=== PATIENT | female | born 1960 | race Caucasian/White ===

== ENCOUNTER → 2022-06-15 14:06 | Outpatient (CLI) | payer BC, SELFPAY ==
--- NOTE | ~2022-06-15 | XR_ITS ---
EXAMINATION: XR shoulder RT min 2V DATE: 06/15/2022 14:22 INDICATION: Right shoulder pain TECHNIQUE: AP internally and externally rotated, AP oblique externally rotated and axillary views of the right shoulder were obtained. COMPARISON: None FINDINGS: Normal alignment. No fracture.Moderate right glenohumeral and mild acromioclavicular osteoarthritis. Visualized portions of the mid to upper right lung are clear. Soft tissues are unremarkable. IMPRESSION: Moderate right acromioclavicular and mild glenohumeral osteoarthritis. Reviewed, dictated and finalized at location L.
== END ==
PROVIDERS: PCP Family Medicine Adolescent Medicine; Visit Provider Family Medicine Adolescent Medicine
DX: M19.011 Primary osteoarthritis, right shoulder (principal); M25.511 Pain in right shoulder
CPT/HCPCS: 73030

== ENCOUNTER 2023-04-15 18:23 | Inpatient (IN) | payer MEDICARE, BC, SELFPAY ==
[2023-04-15] VITALS (9 sets, daily range): BP systolic 134–152; BP diastolic 82–98; PULSE 126–142; RESP 15–18; TEMP 36.4; O2SAT 97–100; BMI 26.2
--- NOTE | ~2023-04-15 | XR_ITS ---
EXAMINATION: XR surgery orthopedic DATE: 04/17/2023 09:07 INDICATION: Intertrochanteric fracture of proximal left femur. TECHNIQUE: 4 intraoperative spot fluoroscopic views of left femur were obtained. I was not present. F luoroscopy exposure time was 50 seconds. COMPARISON: Left hip radiographs 04/15/2023 FINDINGS: There is an intertrochanteric fracture of proximal femur in near-anatomic alignment status post open reduction internal fixation with antegrade intramedullary shan, distal interlocking screw, a nd femoral head/neck screw. There is mild left hip osteoarthritis. IMPRESSION: 1. Intertrochanteric fracture of proximal left femur status post open reduction internal fixation. 2. Mild left hip osteoarthritis. Reviewed, dictated and finalized at location A. PRESIDENT OF MARKETING
--- NOTE | ~2023-04-15 | XR_ITS ---
EXAMINATION: XR chest 1V portable INDICATION: Pain after fall TECHNIQUE: Portable AP chest at 2031 hours COMPARISON: None available FINDINGS: There is mild atelectasis of the left lung base. No pleural effusion or pneumothorax. The c ardiomediastinal silhouette is normal. IMPRESSION: 1. Mild atelectasis of the left lung base. Reviewed, dictated and finalized at location F. LING MACHINE OPERATOR
--- NOTE | ~2023-04-15 | XR_ITS ---
EXAMINATION: XR hip LT 2V w AP pelvis INDICATION: Left hip pain, initial encounter TECHNIQUE: AP view the pelvis and two views of the left hip are obtained. COMPARISON: None available FINDINGS: There is an acute, traumatic, closed, intertrochanteric fracture of the proximal left femur . The femoral head is well-seated in the acetabulum. There is mild osteoarthritis of the hips. IMPRESSION: 1. Acute intertrochanteric fracture of the proximal left femur. Reviewed, dictated and finalized at location F. L FINISHER
--- NOTE | 2023-04-15 18:48 | ED.FALL ---
HPI - Fall General Chief Complaint: Fall Stated Complaint: fall, hip pain Time Seen by Provider: 04/15/23 18:32 History of Present Illness HPI Narrative: patient is a 62-year-old female who presents ER with left hip pain. She was walking out of her home when she tripped falling onto her left hip. She did not strike her head or lose consciousness. Sudden onset pain. No numbness or tingling to the affected extremity. Unable to bear weight since the fall. Pain is sharp nonradiating. It is better with lying still. Related Data Allergies Allergy/AdvReac Type Severity Reaction Status Date / Time No Known Allergies Allergy Verified 04/06/23 13:14 Review of Systems Review of Systems: All systems reviewed & are unremarkable except as noted in HPI and below Constitutional: Constitutional: Reports no additional constitutional complaints Cardiovascular: Cardiovascular: Reports no additional cardiovascular complaints Respiratory: Respiratory: Reports no additional respiratory complaints Musculoskeletal: Musculoskeletal: Reports arthralgias, Denies joint swelling and Denies muscle cramps Integumentary/Breasts: Skin/Breast: Reports system reviewed and no additional complaints, except as docu Neurologic: Reports system reviewed and no additional complaints, except as documented [facility] Past Medical History Medical History (Updated 04/15/23 @ 22:22 by Jan Montoya MD) Hypertension Surgical History Surgical History (Updated 06/01/21 @ 16:53 by Carlyn Garcia, PAShakaC) History of History of tonsillectomy and adenoidectomy Family History Family History (Updated 06/02/21 @ 14:14 by Bhavna Ghotra MA) Father Acute myocardial infarction Hypertension Malignant neoplasm of prostate Grandparent Cerebrovascular accident Social History Social History (Updated 06/02/21 @ 14:16 by Bhavna Ghotra MA) Smoking status: Never smoker Second hand tobacco smoke exposure: No Alcohol intake: current Drinks per week: 6 Substance use: never Substance use type: does not use Living arrangements: with family Occupation/Education: retired Gender identity (if verbalized by the patient): Female Sexual Orientation (if Verbalized by the Patient): Straight or Heterosexual Spiritual care concerns: No Agree to blood products: Yes Exam Narrative: GENERAL: Well-appearing, well-nourished, and in no acute distress. HEAD: Normocephalic, atraumatic. ENT: Mucous membranes moist. NECK: Supple. CHEST: Clear to auscultation. No respiratory distress. HEART: Tachycardic and regular. Normal peripheral pulses. ABDOMEN: Soft, nontender, nondistended. EXTREMITIES: Neurovascularly intact left lower extremity but limited range motion due to pain at the hip. SKIN: Warm, dry, no rash. NEURO: Alert and oriented x3. PSYCH: Normal mood and affect. Course Course Emergency Course: Discussed case with Dr. Beckford. Recommends NPO at midnight. Patient persistently tachycardic in EKG looks like atrial flutter with RVR. She has received metoprolol 5 mg x 2. Cardiology has been consulted. Will order an echo in the morning. Vital Signs Vital signs: Vital Signs Temperature 97.5 F L 04/15/23 18:25 Pulse Rate 126 H 04/15/23 18:25 Respiratory Rate 18 04/15/23 18:25 Blood Pressure 152/87 H 04/15/23 18:25 Pulse Oximetry 100 04/15/23 18:25 Oxygen Delivery Room Air 04/15/23 18:25 Temperature 97.5 F L 04/15/23 18:25 Pulse Rate 126 H 04/15/23 21:46 Respiratory Rate 18 04/15/23 21:46 Blood Pressure 136/96 H 04/15/23 21:46 Pulse Oximetry 98 04/15/23 21:46 Oxygen Delivery Room Air 04/15/23 18:25 MDM - Fall Lab Data 04/15/23 19:47 04/15/23 20:26 Labs: Lab Results 04/15/23 04/15/23 Range/Units 19:47 20:26 WBC 11.4 H (4.5-10.0) K/mm3 RBC 3.92 L (4.2-5.4) M/mm3 Hgb 13.1 (12.0-15.0) g/dL Hct 38.5 (37.0-47.0)
[2023-04-15] MEDS: MORPHINE SULFATE (*CRX) 2 MG/ML INJ IV PUSH ×2 (18:50→21:45)
--- NOTE | 2023-04-15 19:33 | ECG_ITS ---
Measurements Intervals [place] Rate: 126 P: OR: 0 QRS: -9 QRSD: 184 T: -71 QT: 335 QTc: 486 Interpretive Statements ATRIAL FLUTTER/TACHYCARDIA WITH RAPID VENTRICULAR RESPONSE DELAYED PRECORDIAL R/S TRANSITION ABNORMAL ECG NO PREVIOUS ECG AVAILABLE FOR COMPARISON Electronically Signed On 04-15-2023 20:25:20 SMALL PRODUCTS ASSEMBLER by Junior Mauro D.O.
[2023-04-15 20:01] LABS: Basophils Absolute Auto 0.1 K/mm3 (0.0-0.1); Basophils Percent Auto 0.4 % (0.2-1.2); Eosinophils Absolute Auto 0.1 K/mm3 (0-0.3); Hematocrit 38.5 % (37.0-47.0); Hemoglobin 13.1 g/dL (12.0-15.0); Immature Granulocyte Absolute 0.04 K/mm3 (0.00-0.031); Immature Granulocyte Percent A 0.3 % (0-0.5); Lymphocytes Absolute Auto 1.05 K/mm3 (0.9-3.2); Lymphocytes Percent Auto 9.2 % (18.3-44.2); Mean Corpuscular Hemoglobin 33.4 pg (26-34); Mean Corpuscular Volume 98.2 fl (80-100); Mean Platelet Volume 9.2 fl (7.4-10.4); Monocytes Absolute Auto 0.6 K/mm3 (0.1-0.6); Monocytes Percent Auto 5.3 % (2.6-8.5); Neutrophils Absolute Auto 9.6 K/mm3 (1.3-6.7); Neutrophils Percent Auto 83.8 % (45.5-73.1); Platelet Count Result 382 k/mm3 (150-375); Red Blood Count 3.92 M/mm3 (4.2-5.4); Red Cell Distribution Width 12.3 % (11.5-14.5); White Blood Count 11.4 K/mm3 (4.5-10.0)
[2023-04-15 20:04] LABS: INR 1.1; Prothrombin Time 14.2 Seconds (11.1-14.7)
[2023-04-15 20:47] LABS: Alanine Aminotransferase 20 U/L (6-35); Albumin Level 4.4 g/dL (3.5-5.1); Alkaline Phosphatase 106 U/L (38-126); Anion Gap 9 mmol/L (8-16); Aspartate Amino Transferase 31 U/L (14-36); Bilirubin,Total 0.4 mg/dL (0.2-1.3); Blood Urea Nitrogen 19 mg/dL (7-17); Calcium 9.3 mg/dL (8.4-10.2); Carbon Dioxide 22 mmol/L (22-30); Chloride 99 mmol/L (98-107); Estimated CRCL calculation 81 ml/min; Estimated Glomerular Filt Rate > 60; Glucose 130 mg/dL (65-110); Potassium 3.7 mmol/L (3.4-5.0); Sodium 130 mmol/L (137-145)
[2023-04-15] MEDS: METOPROLOL TARTRATE INJ 5 MG/5 ML VIAL IV PUSH ×2 (20:50→21:38)
[2023-04-15] MEDS: SODIUM CHLORIDE 0.9% IV 1,000 ML 999 ML IV CONT (21:39)
[2023-04-15 21:50] LABS: Magnesium 1.7 mg/dL (1.6-2.3)
[2023-04-15] MEDS: dilTIAZem 100 MG/100 ML 100 MG/100 ML BAG IV CONT (22:31)
--- NOTE | 2023-04-15 23:17 | ADMGEN ---
This patient, Teresita Ochoa, was admitted to IMU Room 200-01. Patient/family oriented to hospital policies and general routines including ID bracelet, bed and alarms, visiting hours, pain management, procedures, bathroom and other care routines, personal items, smoking policy, room service/diet, and visiting hours. Information on how to activate the Rapid Response Team has been discussed. Patient/Family are encouraged to report perceived risks to care and to ask questions if they do not understand what they are told or what they should do.
[2023-04-16] VITALS (24 sets, daily range): BP systolic 70–142; BP diastolic 40–82; PULSE 64–135; RESP 15–24; TEMP 36–36.8; O2SAT 93–97
[2023-04-16] MEDS: MORPHINE SULFATE (*CRX) 2 MG/ML INJ IV PUSH (00:03)
[2023-04-16] MEDS: METOPROLOL TARTRATE INJ 5 MG/5 ML VIAL IV PUSH (00:46)
--- NOTE | 2023-04-16 00:59 | PM.IMHP ---
H&P: HPI History of Present Illness Date/Time: 04/16/23 00:59 Chief Complaint: Left hip pain after tripping and falling Narrative: 62-year-old female with past medical history of essential hypertension and arthritis who presented to the ER after she had a trip and fall resulting in left hip pain. She reported that she stepped down into the garage onto the 1st step and got tripped up. She stumbled and was trying to catch herself but still fell. She landed on her left side and kept trying to straighten out her leg. She was unable to straighten out her leg in finally called for help. X-ray performed in the ER demonstrated acute intratrochanteric fracture the proximal left femur. On arrival to the ER the patient was noted to be tachycardic. The patient has had a mention of tachycardia from office visits with her primary as far back as June 2022. The patient had purchased a fitness tracker about 3 weeks ago. Ever since she put it on it is been telling her that her heart rate is high. Most notably her heart rate is been staying high when she is in bed and sleeping up to 130. She went to her primary care physician's office 04/06/2023 at which time a Holter monitor was ordered as well as some basic labs. Her Holter monitor could not be arranged until the middle of April.. She has not been having any chest pain. She denies any shortness of breath or palpitations. She has been will climb steps without difficulty. She has not noticed any lower extremity swelling orthopnea. Review of Systems Review of Systems: 12 systems were reviewed with pertinent positives and negatives per HPI. Except as documented in the HPI, all other systems were reviewed and are negative. [facility] Past Medical History Medical History Hypertension Surgical History Surgical History History of History of tonsillectomy and adenoidectomy Family History Family History Father Malignant neoplasm of prostate Acute myocardial infarction Hypertension Grandparent Cerebrovascular accident Mother Alzheimer disease Social History Social History (Updated 04/16/23 @ 05:39 by Karyna J. Hopen, DO) Social History: Patient is retired from working for the [employer]. She lives with her in the been since 1977. They raised 2 daughters. She drinks 3-4 but beers several times a week. She denies any illicit substance use pack of cigarettes per day for 38 years but quit smoking in 2012. Code status: Full code Surrogate decision maker: Smoking packs per day: 1 Smoking cigarettes per day: 20.0 Years smoked: 38 Smoking pack-years: 38.00 Smoking status: Former smoker Tobacco type: cigarettes Second hand tobacco smoke exposure: No Alcohol intake: current Drinks per week: 28 Alcohol use details: 3-4 beers a day several times a week. Substance use: never Substance use type: does not use Do You Feel Safe in your Home?: Yes Lack of Transportation: No Lack of Food: Never True Current Housing: I Have Housing Concerned About Future Housing: No Difficulty Paying Gas/Electric Bills: No Difficulty Paying for Meds: No Currently Unemployed: No Education: High School Diploma/GED Difficulty w/ Childcare or Family Care: No Living arrangements: with family Occupation/Education: retired Gender identity (if verbalized by the patient): Female Sexual Orientation (if Verbalized by the Patient): Straight or Heterosexual Spiritual care concerns: No Agree to blood products: Yes Meds Home Medications and Allergies Home Medications Medication Instructions Recorded Confirmed Type lisinopril 20 1 tablet PO DAILY #90 tabs 05/05/22 04/15/23 Rx mg-hydrochlorothiazide 25 mg tablet propranolol 80 mg capsule,24 80 m
[2023-04-16] MEDS: MORPHINE SULFATE (*CRX) 4 MG/ML INJ IV PUSH ×2 (02:48→06:26)
--- NOTE | 2023-04-16 06:00 | ECHO_ITS ---
Patient Info Name: Teresita Ochoa Age: 62 years : 1960 Gender: Female Ht: 67 in Wt: 165 lbs BSA: 1.89 m2 HR: 74 bpm BP: 103 / 56 mmHg Heart Rhythm: Sinus Rhythm Technical Quality: Good Exam Date: 04/16/2023 9:33 AM Exam Location: Echo Lab Patient Status: Inpatient Admit Date: 04/16/2023 Staff Ordering Physician: Jan Montoya MD Extruding Press Operator: Rose Al RDCS Attending Provider: Karyna Case DO Referring Physician: Jan NICHOLS; Exam Type: CA echo doppler color flow Study Info Indications - atrial flutter Complete two-dimensional, color flow and Doppler transthoracic echocardiogram is performed. Summary 1. Complete two-dimensional, color flow and Doppler transthoracic echocardiogram is performed. 2. The left ventricular diastolic function is indeterminate. 3. There is mildly increased left ventricular wall thickness. 4. Left ventricular systolic function is normal, estimated at 60-65%. 5. Left ventricular chamber dimension is normal. 6. Left atrial chamber dimension is mildly enlarged. 7. Right atrial chamber dimension is mildly enlarged. 8. There is mild tricuspid valve regurgitation. 9. Mild pulmonary hypertension, estimated pulmonary arterial systolic pressure is 44 mmHg. Left Ventricle Left ventricular chamber dimension is normal. Left ventricular systolic function is normal, estimated at 60-65%. There is mildly increased left ventricular wall thickness. The left ventricular diastolic function is indeterminate. Right Ventricle Right ventricular chamber dimension is normal. Right ventricular systolic function is normal. Left Atria Left atrial chamber dimension is mildly enlarged. Right Atria Right atrial chamber dimension is mildly enlarged. Atrial Septum Intact interatrial septum visualized by color flow imaging. Aortic Valve The aortic valve is trileaflet. There is mild aortic valve sclerosis. There is no aortic valve stenosis. There is trace aortic valve regurgitation. Pulmonic Valve The pulmonic valve is normal. There is no pulmonic valve stenosis. There is trace pulmonic regurgitation. Mitral Valve The mitral valve has normal leaflets. There is no mitral valve stenosis. There is trace mitral valve regurgitation. Tricuspid Valve The tricuspid valve leaflets are normal. There is no significant tricuspid valve stenosis. There is mild tricuspid valve regurgitation. Mild pulmonary hypertension, estimated pulmonary arterial systolic pressure is 44 mmHg. Pericardium/Pleural The pericardium appears normal. There is no pericardial effusion. Inferior Vena Cava Normal inferior vena cava with <50% collapse upon inspiration consistent with elevated right atrial pressure, 10 mmHg. Aorta The aortic root size at the sinus of Valsalva is normal. Left Ventricular Outflow Tract Name Value Normal LVOT 2D LVOT Diameter 2.0 cm LVOT Doppler LVOT Peak Gradient 2 mmHg LVOT Mean Gradient 2 mmHg LVOT VTI 19 cm LVOT VTI/AV VTI Ratio 1.0 LVOT Stroke Volume 58 ml LVOT CO
[2023-04-16] MEDS: dilTIAZem 100 MG/100 ML 100 MG/100 ML BAG 15 MG IV CONT (06:14)
[2023-04-16] MEDS: METOPROLOL TARTRATE 50 MG TAB PO ×2 (08:06→21:20)
[2023-04-16] MEDS: lisinopriL 20 MG TABLET PO (08:13)
--- NOTE | 2023-04-16 08:19 | PM.CNOR ---
Assessment and Plan Assessment and plan (1) Closed intertrochanteric fracture of left hip: Qualifiers: Encounter type: initial encounter Fracture alignment: nondisplaced Qualified Code(s): S72.145A - Nondisplaced intertrochanteric fracture of left femur, initial encounter for closed fracture Code(s): S72.142A - Displaced intertrochanteric fracture of left femur, initial encounter for closed fracture Status: Acute Assessment and Plan: New patient evaluation for chief complaint left hip fracture. History, physical exam and radiographs reviewed with the patient And her . Discussed the condition, nature, etiology and course of natural history with the patient. Treatment options including surgical and nonoperative treatment were reviewed. Risks and benefits of each as well as alternatives reviewed. The patient's questions were answered. Conservative treatment ice, pain control, mechanical DVT prophylaxis. patient like to proceed with surgery. Needs medical stabilization and cardiac clearance. Plan Discussed nonoperative and operative treatment options with the patient. Risks and benefits of each as well as alternatives were reviewed. All of the patient's questions were answered. The risks of surgery reviewed including but not limited to: Neurovascular damage, wound complication, infection, blood clot, pulmonary embolus, stroke, myocardial infarction, and anesthetic risks up to and including . Continued pain and possible dysfunction were explained. Specific risks of the procedure including later recurrence of deformity. No guarantees were offered. If hardware used, discussed risk of failure/ breakage and possible need for removal. If complications occur, the patient understands the need for further treatment, possible further surgery. Patient verbalizes understanding and wishes to proceed. PLAN: Left Hip intramedullary hip screw History of Present Illness HPI Consult date: 04/16/23 Requesting physician: Jan Montoya MD Chief complaint: Hip Fracture, Aflutter RVR Narrative: 62-year-old woman who fell at home yesterday onto left hip. Urgency room evaluation found to have left hip fracture as well as atrial flutter. Admitted for further care. Denies prior problems with the hip. Independent ambulator normally active. Denies numbness or tingling. Denies loss of consciousness or head injury. Review of Systems Constitutional: Constitutional: Denies fever(s) Eyes: Eyes: Denies blurry vision ENT: Reports Normal hearing present Cardiovascular: Cardiovascular: Denies chest pain and Denies dyspnea Respiratory: Respiratory: Denies dyspnea and Denies wheezing Gastrointestinal: Gastrointestinal: Denies abdominal pain Genitourinary: Genitourinary: Denies urinary urgency Musculoskeletal: Musculoskeletal: Reports as per HPI and Denies numbness Integumentary/Breasts: Skin/Breast: Denies changing lesions and Denies sores Neurologic: Reports Normal hearing present, Denies behavioral changes, Denies confusion, Denies numbness and Denies convulsions Psychiatric: Psychiatric: Denies behavioral changes, Denies confusion and Denies hallucinations Endocrine: Endocrine: Denies heat intolerance Hematologic/Lymphatic: Hematologic/Lymphatic: Denies easy bleeding Allergic/Immunologic: Allergic/Immunologic: Denies wheezing [facility] Past Medical History Medical History Hypertension Surgical History Surgical History History of History of tonsillectomy and adenoidectomy Family History Family History Father Malignant neoplasm of prostate Acute myocardial infarction Hypertension Grandparent Cerebrovascular accident Mother Alzheimer disease Social History Social History (Reviewed 04/16/23 @ 08:21 by Edgardo
[2023-04-16] MEDS: oxyCODONE HCL (*CRX) 5 MG TAB IR PO (10:30)
--- NOTE | 2023-04-16 10:56 | ECG_ITS ---
Measurements Intervals [place] Rate: 67 P: [place]: 0 QRS: 24 QRSD: 97 T: 42 QT: 428 QTc: 453 Interpretive Statements ATRIAL FLUTTER WITH NORMAL VENTRICULAR RESPONSE INCOMPLETE RIGHT BUNDLE BRANCH BLOCK LOW QRS VOLTAGE IN PRECORDIAL LEADS INFERIOR INFARCT, AGE INDETERMINATE ABNORMAL ECG COMPARED TO ECG 04/15/2023 20:22:39 MYOCARDIAL INFARCT FINDING NOW PRESENT HEART RATE HAS DECREASED Electronically Signed On 04-16-2023 16:55:48 RETAIL BUSINESS ANALYST by Junior Mauro D.O.
--- NOTE | 2023-04-16 10:57 | PM.CNCAR ---
Assessment and Plan Assessment and plan (1) Atrial flutter with rapid ventricular response: Code(s): I48.92 - Unspecified atrial flutter Status: Acute Assessment and Plan: She has a chads Vasc score of 2 a normal is 3 dose because of age gender and hypertension. Initially that way heart rate is controlled on current dose of diltiazem. 2D echocardiogram Doppler severe is ordered and will be reviewed. Continue current though diltiazem drip does has a heart rate is controlled. Will reorder an EKG now. His she was likely. Will give 1 dose of enoxaparin 1 milligram/kilogram subQ x1 now to underlying protector for today for DVT and thrombus risk. Plan is for her to have whenever surgery tomorrow. In the short term obviously she needs her hip fixed. In the superintendent container terminal will get pursue rate control and it or not rhythm control by cardioversion but obviously needs to proceed to have her and hip fracture stabilized before pursuing any cardioversion due to long-term anticoagulant need. She does drink at least 3-5 beers per night. Certainly this may be a contributing factor to her arrhythmia. Alcohol cessation or reduction is advised (2) Hypertension: Code(s): I10 - Essential (primary) hypertension Status: Acute Assessment and Plan: continue lisinopril/hydrochlorothiazide and diltiazem (3) Electrolyte abnormality: Code(s): E87.8 - Other disorders of electrolyte and fluid balance, not elsewhere classified Status: Acute Assessment and Plan: Will replace 40 mEq of potassium chloride p.o. x1 as well as magnesium 2 g IV x1 (4) Closed intertrochanteric fracture of left hip: Qualifiers: Encounter type: initial encounter Fracture alignment: nondisplaced Qualified Code(s): S72.145A - Nondisplaced intertrochanteric fracture of left femur, initial encounter for closed fracture Code(s): S72.142A - Displaced intertrochanteric fracture of left femur, initial encounter for closed fracture Status: Acute Assessment and Plan: The plan for surgery tomorrow. Patient is at low risk of perioperative cardiovascular complications History of Present Illness History of Present Illness Consult date/time: 04/16/23 10:57 Requesting physician: Jan Montoya MD Consult reason: atrial fibrillation Reason For Visit: Hip Fracture, Aflutter RVR Narrative: Reason for consultation: Atrial flutter Date of service 04/16/2023 Requesting provider: Dr. Montoya History patient is a 62-year-old female who came to the hospital following a fall and hip fracture. She actually has been dealing with an elevated heart rate though for the past 3-[address] Clement who recently started her on propanolol and had discontinued amlodipine. She noticed a fast heartbeat on her fit bit about a month ago. She knows that her heart rate was high even at rest. This led her to be seen by Dr. Clement who reportedly ordered an outpatient monitor and made the medication changes as above. She otherwise of feels okay and denies any palpitations, shortness of breath, syncope, presyncope, paroxysmal nocturnal dyspnea, orthopnea, edema or palpitations. Yesterday she was walking out from the kitchen to the garage where she lost her footing and fell on her left side. Came to hospital because of left hip pain and she was found to have inter trochanteric fracture of the left hip. Plan is for surgical intervention tomorrow. She was started on a diltiazem drip which has decreased her heart rate into the 60s. Review of Systems Review of Systems: All systems reviewed & are unremarkable except as noted in HPI and below Constitutional: Constitutional: Denies body ache(s) Eyes: Eyes: Denies blurry vision ENT: Reports Normal hearing present Cardiovascular: Cardiovascular: Denies chest pain Respiratory: Respiratory: Denies cough Gastrointestinal: Gastrointestinal: Denies abdominal pain Genitourin
[2023-04-16] MEDS: MAGNESIUM SULF 2 GM/WATER 50ML 2 GM/50 ML BAG IVPB (12:26)
[2023-04-16] MEDS: SODIUM CHLORIDE 0.9% IV 250 ML 100 ML IV CONT (12:27)
[2023-04-16] MEDS: POTASSIUM CHLORIDE 20 MEQ ER TABLET 40 MEQ PO (12:29)
[2023-04-16] MEDS: ENOXAPARIN 80 MG/0.8 ML SYRINGE SUB-Q (12:37)
--- NOTE | 2023-04-16 15:16 | PM.IMPN ---
Progress Note: A&P Assessment and Plan (1) Closed intertrochanteric fracture of left hip: Qualifiers: Encounter type: initial encounter Fracture alignment: nondisplaced Qualified Code(s): S72.145A - Nondisplaced intertrochanteric fracture of left femur, initial encounter for closed fracture Code(s): S72.142A - Displaced intertrochanteric fracture of left femur, initial encounter for closed fracture Status: Acute Assessment and Plan: Patient tripped and fell onto her left hip in the garage. She tripped stepping down into the garage. She did not strike her head or lose consciousness.? Xray showing acute intratrochanteric fracture of the proximal left femur. Patient was admitted. Orthopedics consulted. Plan for surgical repair in the morning. Pain management per Orthopedics (2) Atrial flutter with rapid ventricular response: Code(s): I48.92 - Unspecified atrial flutter Status: Acute Assessment and Plan: Patient found to have atrial flutter on admission. Suspect patient has had Aflutter for at least 3 weeks. [id number] =2 (gender and HTN). TSH normal 04/07/23 Echo EF 60-65%, mild pulm HTN, mild bi-atrail enlargement and indeterminate diastolic fxn. Cardiology consulted and apprecaite their input. Metoprolol then Diltiazem IV given. Heart rate improved. Changed to oral metoprolol and HR remaining stable. . Lovenox full dose x1 given. Follow Anticoagulation when okay with ortho. (3) Hypertension: Code(s): I10 - Essential (primary) hypertension Status: Acute Assessment and Plan: Patient's blood pressure was reviewed on 04/15 Blood pressure low at times. Back down on morphine and hold lisinopril Will continue to monitor (4) Hyponatremia: Code(s): E87.1 - Hypo-osmolality and hyponatremia Status: Acute Assessment and Plan: Sodium 130 on admission. Hyponatremia could be related to pain but sodium level the same as 04/07/23. TSH normal Check cortisol level and urine studies. Plan Code status - full Dvt prophylaxis - lovenox Subjective Date/time seen: 04/16/23 15:16 Interval history: 62yo female with HTN here for hip pain after a fall and found to have left hip fracture. Also has been having tachycardia and noted to have AFib/RVR in the ED. No CP or SOB. Having trouble getting comfortable. Pain 7/10 at the moment. Exam Narrative: AF 97.8 98/53 86 16 93% ra Gen - NARD Chest - clear anteriorly and in the flanks. nml RR CV - Irregular. Tele showing AFlutter with variable conduction Abd - Soft, NT/ND, Positive BS Ext - No pedal edema. 2+ DP pulses bilaterally. Neuro - Alert and appropriate. nml sensation to the left foot/toes Psych - Nml mood and affect Skin - Warm and dry Objective Data Vital Signs Vital Signs: Vital Signs - 24 hr 04/15/23 18:25 04/15/23 20:50 04/15/23 20:52 Temperature 97.5 F L Pulse Rate 126 H 132 H 141 H Respiratory Rate 18 17 Blood Pressure 152/87 H 142/98 H Pulse Oximetry 100 99 Oxygen Delivery Room Air 04/15/23 21:38 04/15/23 21:46 04/15/23 22:31 Temperature Pulse Rate 128 H 126 H 127 H Respiratory Rate 18 Blood Pressure 136/96 H 134/98 H Pulse Oximetry 98 Oxygen Delivery 04/15/23 23:00 04/15/23 23:19 04/15/23 23:33 Temperature 97.6 F Pulse Rate 142 H 134 H 127 H Respiratory Rate 15 15 Blood Pressure 136/96 H 136/94 H 142/82 H Pulse Oximetry 100 97 Oxygen Delivery 04/16/23 00:38 04/16/23 00:46 04/16/23 00:54 Temperature Pulse Rate 130 H 131 H 131 H Respiratory Rate Blood Pressure 142/82 H Pulse Oximetry Oxygen Delivery 04/16/23 00:00 04/16/23 00:00 04/16/23 02:00 Temperature Pulse Rate 129 H 130 H Respiratory Rate Blood Pressure Pulse Oximetry 97 Oxygen Delivery Room Air 04/16/23 02:40 04/16/23 02:40 04/16/23 04:00 Temperature 97.9 F Pulse Rate 131 H 131 H 76 Respiratory Rate
[2023-04-16] MEDS: ACETAMINOPHEN 325 MG TABLET 650 MG PO ×2 (15:49→21:29)
[2023-04-16 18:43] LABS: Creatinine Urine 191.8 mg/dL
[2023-04-16 18:46] LABS: Sodium Urine Random 8 meq/L
[2023-04-16] MEDS: SODIUM CHLORIDE 0.9% IV 250 ML BAG 500 ML IVPB (21:15)
[2023-04-16] MEDS: dilTIAZem 100 MG/100 ML 100 MG/100 ML BAG IV CONT (21:20)
[2023-04-17] VITALS (30 sets, daily range): BP systolic 88–113; BP diastolic 50–70; PULSE 65–139; RESP 13–21; TEMP 36.3–37.4; O2SAT 93–100
[2023-04-17] MEDS: ACETAMINOPHEN 325 MG TABLET 650 MG PO ×3 (03:04→20:00)
[2023-04-17 04:28] LABS: Hematocrit 33.9 % (37.0-47.0); Hemoglobin 11.3 g/dL (12.0-15.0); Mean Corpuscular HGB Conc 33.3 g/dl (32-36); Mean Corpuscular Hemoglobin 33.1 pg (26-34); Mean Corpuscular Volume 99.4 fl (80-100); Platelet Count Result 312 k/mm3 (150-375); Red Blood Count 3.41 M/mm3 (4.2-5.4); Red Cell Distribution Width 12.7 % (11.5-14.5); White Blood Count 10.4 K/mm3 (4.5-10.0)
[2023-04-17 04:46] LABS: Anion Gap 7 mmol/L (8-16); Blood Urea Nitrogen 8 mg/dL (7-17); Calcium 8.5 mg/dL (8.4-10.2); Carbon Dioxide 21 mmol/L (22-30); Chloride 103 mmol/L (98-107); Estimated CRCL calculation 94 ml/min; Estimated Glomerular Filt Rate > 60; Glucose 109 mg/dL (65-110); Potassium 3.9 mmol/L (3.4-5.0); Sodium 131 mmol/L (137-145)
--- NOTE | 2023-04-17 07:01 | PC.NURSE ---
I notified the OR charge nurse that the patient is back on a Cardizem drip at 15mg/hr and heart rate has decreased to 90-115, AFlutter. Also advised her that Lovenox 80mg subcut was given on day shift yesterday for AFib/Flutter. She will notify anesthesia and Dr. Beckford.
[2023-04-17] MEDS: dilTIAZem 100 MG/100 ML 100 MG/100 ML BAG 15 MG IV CONT ×3 (07:16→19:59)
--- NOTE | 2023-04-17 07:37 | WPDHPUPDATE1 ---
History and Physical Update Update Date/Time: 04/17/23 07:37 History and Physical has been reviewed, including an updated exam of the patient. There are NO changes in the patient's condition. Risks, benefits, and alternatives have been discussed and questions answered. Patient agrees to proceed with procedure.
--- NOTE | 2023-04-17 07:55 | WPDANESEPPF ---
Anes - Initial Pre Proc Eval Procedure: Operation Date: 04/17/23 07:30 Proposed Procedures p Intertrochanteric Nail(Left) - Edgardo Beckford MD Date/Time: 04/17/23 07:55 Surgeon: Karyna Case DO Pre Op Diagnosis: Hip Fracture, Aflutter RVR Patient Data Age: 62 Gender: F Height: 1.71 m Weight: 81.6 kg Last Vital Signs Temp 36.3 C L 04/17/23 05:33 Pulse 79 04/17/23 07:16 Resp 18 04/17/23 05:33 BP 101/61 04/17/23 05:33 Pulse Ox 93 04/17/23 05:33 O2 Del Method Room Air 04/17/23 04:00 Allergies Allergy/AdvReac Type Severity Reaction Status Date / Time No Known Allergies Allergy Verified 04/06/23 13:14 Home Medications Medication Instructions Recorded Confirmed Type lisinopril 20 1 tablet PO DAILY #90 tabs 05/05/22 04/15/23 Rx mg-hydrochlorothiazide 25 mg tablet propranolol 80 mg capsule,24 80 mg PO DAILY #90 caps 04/11/23 04/15/23 Rx hr,extended release Laboratory Tests 04/16/23 04/17/23 17:00 03:41 WBC 10.4 H K/mm3 (4.5-10.0) RBC 3.41 L M/mm3 (4.2-5.4) Hgb 11.3 L g/dL (12.0-15.0) Hct 33.9 L % (37.0-47.0) MCV 99.4 fl (80-100) MCH 33.1 pg (26-34) MCHC 33.3 g/dl (32-36) RDW 12.7 % (11.5-14.5) Plt Count 312 k/mm3 (150-375) MPV 9.0 fl (7.4-10.4) Sodium 131 L mmol/L (137-145) Potassium 3.9 mmol/L (3.4-5.0) Chloride 103 mmol/L (98-107) Carbon Dioxide 21 L mmol/L (22-30) Anion Gap 7 L mmol/L (8-16) BUN 8 D mg/dL (7-17) Creatinine 0.50 L mg/dL (0.7-1.0) Estim Creat Clear Calc 94 ml/min Estimated GFR > 60 (59 - ) Glucose 109 mg/dL (65-110) Calcium 8.5 mg/dL (8.4-10.2) Random Cortisol 18.70 ug/dL Ur Random Sodium 8 meq/L Urine Creatinine 191.8 mg/dL Patient hx anesthesia problems: none Family hx anesthesia problems: none Results Review: All pre-operative results and documents have been reviewed as part of the pre-operative evaluation. [facility] Past Medical History Medical History Hypertension Surgical History Surgical History History of History of tonsillectomy and adenoidectomy Family History Family History Father Malignant neoplasm of prostate Acute myocardial infarction Hypertension Grandparent Cerebrovascular accident Mother Alzheimer disease Social History Social History Social History: Patient is retired from working for the [employer]. She lives with her in the been since 1977. They raised 2 daughters. She drinks 3-4 but beers several times a week. She denies any illicit substance use pack of cigarettes per day for 38 years but quit smoking in 2012. Code status: Full code Surrogate decision maker: Smoking packs per day: 1 Smoking cigarettes per day: 20.0 Years smoked: 38 Smoking pack-years: 38.00 Smoking status: Former smoker Tobacco type: cigarettes Second hand tobacco smoke exposure: No Alcohol intake: current Drinks per week: 28 Alcohol use details: 3-4 beers a day several times a week. Substance use: never Substance use type: does not use Do You Feel Safe in your Home?: Yes Lack of Transportation: No Lack of Food: Never True Current Housing: I Have Housing Concerned About Future Housing: No Difficulty Paying Gas/Electric Bills: No Difficulty Paying for Meds: No Currently Unemployed: No Education: High School Diploma/GED Difficulty w/ Childcare or Family Care: No Living arrangements: with family Occupation/Education: retired Gender identity (if verbalized by the patient): Female Sexual Orientation (if
[2023-04-17] MEDS: TRANEXAMIC ACID 1,000MG/ISO100 1,000 MG/100 ML BAG 200 MG IVPB (08:00)
[2023-04-17] MEDS: ceFAZolin 2 GM/D5W 50 ML 2 GM/50 ML BAG IVPB (08:20)
[2023-04-17] MEDS: BUPIVACAINE/EPINEPHRINE 0.5% 30 ML VIAL INFILTRATE (08:31)
--- NOTE | 2023-04-17 09:00 | SUR.OPER ---
200mL clear yellow urine drained from spicer intraop
--- NOTE | 2023-04-17 09:11 | P.OP_ITS ---
Procedure Note - Detailed Date of Procedure 04/17/23 Pre-op Diagnosis Hip Fracture, Aflutter RVR Post-op Diagnosis Same Procedure Performed Left intramedullary hip screw Surgeon Edgardo Beckford MD Application Administrator 1st school psychologist assistant Anesthesia General Indications 62-year-old woman who fell and sustained left hip intertrochanteric fracture. Presents for operative treatment. Description of Procedure After informed consent the operative extremity was marked in the preoperative holding area. Patient received intravenous antibiotics. The patient was taken to the operative room, placed in the supine position, general anesthesia induced by the anesthesia team, and was placed on a fracture table with longitudinal traction applied to the left leg. The hip fracture was reduced to near anatomic position and verified with image intensification. A time-out was performed confirming the patient, site of the surgery and plan. The left lower extremity was prepped and draped sterilely from the knee to the iliac crest region using a ChloraPrep skin solution. Incision was made just proximal to greater trochanter down to the subcutaneous tissues. Hemostasis controlled with electrocautery. Blunt dissection through the fascia to the tip of the greater trochanter. A starter awl was placed at the tip of the greater trochanter into the medullary canal of the femur. This was checked with image intensification and was in good position. Intra medullary guide shan positioned. A one-step hand reaming done proximally. Intramedullary canal was reamed with a 12 millimeter flexible reamer. Measuring was then performed off of the guide shan. Neck angle selected off of preoperative radiographs temp plating. 125 degree 11 X 200mm Nail opened on the back table and assembled. This was then inserted over the guide shan to the correct depth. Guide shan removed. Lag screw was then placed with a stab incision over the lateral femur using a 10 blade knife. Blunt dissection down to the lateral side of the bone. Soft tissue protectors placed. Guide pin placed in the center center position of the femoral head and measured. 95 millimeter x 10 millimeter lag screw placed to correct depth and verified with image intensification. Traction released from the leg and compression of the fracture performed with the external compression device. Proximal locking performed. Distal locking of the nail Performed and the static locking hole. soft tissue protector through a stab incision on the lateral thigh. Drill measure and appropriate size screw placed. Final image intensification confirm reduction of the fracture and placement of the hardware. Wounds then thoroughly irrigated with antibiotic solution. Fascia repaired with 0 Vicryl interrupted suture. Subcutaneous tissue repaired with 2 O Vicryl Interrupted suture and skin repaired with 3-0 Monocryl subcuticular stitch and Dermabond. Sterile dressings applied. Patient then awoke from anesthesia, extubated taken to recovery room stable condition. All sponge, needle and instrument counts correct at the end the case. Implants Arthrex trochanteric nail 125 degree, 11 mm by 200 mm with 95 mm lag screw and 36 mm distal screw Estimated Blood Loss 100 Drains No Packing No Pathology None sent Complications None Condition Stable Disposition PACU [facility] Billing Surgery - Charge Forward: Surgery Billing ([id number])
[2023-04-17] MEDS: LACTATED RINGERS 1,000 ML 30 ML IV CONT ×2 (09:13→09:40)
[2023-04-17] MEDS: fentaNYL CITRATE INJ (*CRX) 100 MCG/2 ML VIAL 25 MCG IV PUSH (09:41)
[2023-04-17] MEDS: SODIUM CHLORIDE 0.9% IV 1,000 ML 125 ML IV CONT (11:26)
--- NOTE | 2023-04-17 11:50 | PM.PNCARD ---
Progress Note: A&P Assessment and Plan (1) Atrial flutter with rapid ventricular response: Code(s): I48.92 - Unspecified atrial flutter Status: Acute Assessment and Plan: She has a chads Vasc score of 2 and almost 3 because of age gender and hypertension. Blood pressure is a bit low on a diltiazem drip. She is post surgery and still and the influence of some anesthesia. Will reduce her diltiazem drip down to 10 milligrams/hour. Start anticoagulation when okay with surgery. Ideally pursue LUZMA guided cardioversion before discharge. Hold metoprolol. She does drink at least 3-5 beers per night. Certainly this may be a contributing factor to her arrhythmia. Alcohol cessation or reduction is advised (2) Hypertension: Code(s): I10 - Essential (primary) hypertension Status: Acute Assessment and Plan: continue lisinopril/hydrochlorothiazide and diltiazem (3) Electrolyte abnormality: Code(s): E87.8 - Other disorders of electrolyte and fluid balance, not elsewhere classified Status: Acute Assessment and Plan: Replaced (4) Closed intertrochanteric fracture of left hip: Qualifiers: Encounter type: initial encounter Fracture alignment: nondisplaced Qualified Code(s): S72.145A - Nondisplaced intertrochanteric fracture of left femur, initial encounter for closed fracture Code(s): S72.142A - Displaced intertrochanteric fracture of left femur, initial encounter for closed fracture Status: Acute Assessment and Plan: Post surgery. Patient is at low risk of perioperative cardiovascular complications Subjective Date/time seen: 04/17/23 11:50 Interval history: 62yo female with HTN here for hip pain after a fall and found to have left hip fracture. Also has been having tachycardia and noted to have AFib/RVR in the ED. Date of service 04/17/2023: She is status post hip surgery earlier today. Blood pressure is little low. Heart rate is controlled on diltiazem drip. She denies any chest pain or shortness of breath Review of Systems Review of Systems: All systems reviewed & are unremarkable except as noted in HPI and below Constitutional: Constitutional: Denies body ache(s) and Denies excessive sweating Eyes: Eyes: Denies blurry vision ENT: Reports Normal hearing present Cardiovascular: Cardiovascular: Denies chest pain Respiratory: Respiratory: Denies cough Gastrointestinal: Gastrointestinal: Denies abdominal pain Genitourinary: Genitourinary: Denies hematuria Musculoskeletal: Musculoskeletal: Denies back pain and Reports arthralgias Integumentary/Breasts: Skin/Breast: Denies dry skin Neurologic: Reports Normal hearing present and Denies Abnormal speech present Psychiatric: Psychiatric: Denies anxiety Endocrine: Endocrine: Denies excessive sweating Hematologic/Lymphatic: Hematologic/Lymphatic: Denies easy bleeding Allergic/Immunologic: Allergic/Immunologic: Denies GI upset with certain foods Exam Narrative: Awake alert oriented appears to be in no acute distress Appears stated age Const: General: comfortable and no acute distress HENMT: Face/Nose/Sinus: Normal nares present Mouth: Yes moist mucous membranes Eyes: General: appearance normal, both eyes and all related structures Sclera: sclerae normal Neck: Neck: supple and no JVD Carotids: no bruits Chest: Other: No reproducible chest wall pain to palpation Resp: Effort & Inspection: normal respiratory effort Auscultation: clear to auscultation bilaterally Cardio: Rate: regular rate Rhythm: abnormal rhythm regularly irregular Heart sounds: no murmurs GI: Inspection: non-distended Auscultation: normal bowel sounds Skin: General skin exam: normal color and no rashes or lesions noted Neuro: General: No gait normal Cranial nerves: Yes Normal hearing present Speech: normal speech and No Abnormal speech present Extrem: General: abnormal to inspec
--- NOTE | 2023-04-17 13:53 | PM.IMPN ---
Progress Note: A&P Assessment and Plan (1) Closed intertrochanteric fracture of left hip: Qualifiers: Encounter type: initial encounter Fracture alignment: nondisplaced Qualified Code(s): S72.145A - Nondisplaced intertrochanteric fracture of left femur, initial encounter for closed fracture Code(s): S72.142A - Displaced intertrochanteric fracture of left femur, initial encounter for closed fracture Status: Acute Assessment and Plan: Patient tripped and fell onto her left hip in the garage. She tripped stepping down into the garage. She did not strike her head or lose consciousness.? Xray showing acute intratrochanteric fracture of the proximal left femur. Patient was admitted. Orthopedics consulted. Patient underwent placement of a left intramedullary hip screw today Pain management per Orthopedics. PT/OT started (2) Atrial flutter with rapid ventricular response: Code(s): I48.92 - Unspecified atrial flutter Status: Acute Assessment and Plan: Patient found to have atrial flutter on admission. Suspect patient has had Aflutter for at least 3 weeks. [id number] =2 (gender and HTN). TSH normal 04/07/23 Echo EF 60-65%, mild pulm HTN, mild bi-atrail enlargement and indeterminate diastolic fxn. Cardiology consulted and apprecaite their input. Metoprolol then Diltiazem IV given and heart rate improved. Changed to oral metoprolol but with increase HR. Lovenox full dose x1 given 3/ but not continued due to need for surgery. Metoprolol continued. Diltiazem IV added and dose advanced Anticoagulation when okay with ortho. Appreciate [facility] input. May need LUZMA and possible cardioversion. (3) Hypertension: Code(s): I10 - Essential (primary) hypertension Status: Acute Assessment and Plan: Patient's blood pressure was reviewed on 04/16 Blood pressure still low at times. Will continue to monitor (4) Hyponatremia: Code(s): E87.1 - Hypo-osmolality and hyponatremia Status: Acute Assessment and Plan: Sodium 130 on admission. TSH and cortisol normal Na better at 131 Plan Code status - full Dvt prophylaxis - SCDs Subjective Date/time seen: 04/17/23 13:53 Interval history: 62yo female with HTN here for hip pain after a fall and found to have left hip fracture. Also has been having tachycardia and noted to have AFib/RVR in the ED. Slept well last night. Had surgery earlier today and tolerated it well. no n/v. Tolerating liquid diet. No CP or SOB. No palpitations - does not feel the elevated HR Exam Narrative: AF 98.7 92/50 67 14 99% Gen - NARD lying semi-recumbent in bed Chest - clear anteriorly and in the flanks. nml RR CV - Irregular and tachycardic. Tele showing AFlutter with RVR Abd - Soft, NT/ND, Positive BS Ext - No pedal edema. left lateral hip dressings clean and dry Neuro - Alert and appropriate Psych - Nml mood and affect Skin - Warm and dry Objective Data Vital Signs Vital Signs: Vital Signs - 24 hr 04/16/23 14:00 04/16/23 14:00 04/16/23 16:00 Temperature 97.7 F Pulse Rate 86 64 Respiratory Rate 20 Blood Pressure 98/53 L 92/67 L Pulse Oximetry 94 Oxygen Delivery Oxygen Flow Rate 04/16/23 16:00 04/16/23 16:00 04/16/23 18:00 Temperature Pulse Rate 98 132 H Respiratory Rate Blood Pressure Pulse Oximetry Oxygen Delivery Room Air Oxygen Flow Rate 04/16/23 19:39 04/16/23 21:20 04/16/23 21:20 Temperature 98.3 F Pulse Rate 131 H 135 H 135 H Respiratory Rate 24 H Blood Pressure 103/55 L 103/55 L Pulse Oximetry 95 Oxygen Delivery Oxygen Flow Rate 04/16/23 20:00 04/16/23 20:00 04/17/23 01:12 Temperature 98.3 F Pulse Rate 134 H 130 H Respiratory Rate 20 Blood Pressure 98/63 L Pulse Oximetry 95 96 Oxygen Delivery Room Air Oxygen Flow Rate 04/16/23 22:00 04/17/23 02:40 04/17/23 00:00 Temperature Pulse R
--- NOTE | 2023-04-17 15:40 | PCOTNOTE ---
Attempted OT evaluation. Pt. worked with PT and just got back in bed and refused to get up again. Pt. also has a resting heart of 135. Will attempt again as able.
[2023-04-17] MEDS: SENNA/DOCUSATE SODIUM TABLET 2 TAB PO (17:50)
[2023-04-17] MEDS: ceFAZolin 1 GM/NS 50 ML 1 GM/50 ML BAG IVPB (17:51)
[2023-04-17] MEDS: ENOXAPARIN 80 MG/0.8 ML SYRINGE SUB-Q (17:51)
[2023-04-17] MEDS: METOPROLOL TARTRATE 50 MG TAB PO (22:50)
[2023-04-18] VITALS (28 sets, daily range): BP systolic 88–127; BP diastolic 53–76; PULSE 66–145; RESP 14–22; TEMP 36.2–37.2; O2SAT 94–100
--- NOTE | 2023-04-18 | ECG_ITS ---
Measurements Intervals [place] Rate: 81 P: 61 ND: 210 QRS: 19 QRSD: 92 T: 29 QT: 380 QTc: 444 Interpretive Statements SINUS RHYTHM WITH FIRST DEGREE AV BLOCK POSSIBLE LEFT ATRIAL ENLARGEMENT LOW QRS VOLTAGE IN PRECORDIAL LEADS MINIMAL Q WAVES- INFERIOR LEADS BORDERLINE T WAVE ABNORMALITY- ANT/INF LEADS BORDERLINE ECG COMPARED TO ECG 04/16/2023 12:11:32 SINUS RHYTHM NOW PRESENT FIRST DEGREE AV BLOCK NOW PRESENT Electronically Signed On 04-18-2023 9:39:32 COMPARISON SHOPPER by Junior Mauro D.O.
[2023-04-18] MEDS: ceFAZolin 1 GM/NS 50 ML 1 GM/50 ML BAG IVPB ×2 (00:54→13:15)
[2023-04-18] MEDS: dilTIAZem 100 MG/100 ML 100 MG/100 ML BAG 15 MG IV CONT (04:34)
[2023-04-18 05:05] LABS: Basophils Percent Auto 0.1 % (0.2-1.2); Eosinophils Percent Auto 0.1 % (0-4.4); Hemoglobin 10.7 g/dL (12.0-15.0); Immature Granulocyte Absolute 0.13 K/mm3 (0.00-0.031); Immature Granulocyte Percent A 0.8 % (0-0.5); Lymphocytes Absolute Auto 0.83 K/mm3 (0.9-3.2); Lymphocytes Percent Auto 4.9 % (18.3-44.2); Mean Corpuscular HGB Conc 32.4 g/dl (32-36); Mean Corpuscular Volume 101.9 fl (80-100); Mean Platelet Volume 9.4 fl (7.4-10.4); Monocytes Percent Auto 5.9 % (2.6-8.5); Neutrophils Percent Auto 88.2 % (45.5-73.1); Platelet Count Result 285 k/mm3 (150-375); Red Blood Count 3.24 M/mm3 (4.2-5.4); Red Cell Distribution Width 12.5 % (11.5-14.5)
[2023-04-18 05:09] LABS: Anion Gap 7 mmol/L (8-16); Blood Urea Nitrogen 5 mg/dL (7-17); Calcium 8.6 mg/dL (8.4-10.2); Carbon Dioxide 21 mmol/L (22-30); Chloride 104 mmol/L (98-107); Estimated CRCL calculation 128 ml/min; Estimated Glomerular Filt Rate > 60; Glucose 127 mg/dL (65-110); Sodium 132 mmol/L (137-145)
[2023-04-18] MEDS: ENOXAPARIN 80 MG/0.8 ML SYRINGE SUB-Q (05:10)
--- NOTE | 2023-04-18 05:23 | PC.NURSE ---
Up to BSC with gaitbelt, walker, and 1 assist.
--- NOTE | 2023-04-18 08:28 | PCOTNOTE ---
Attempted to see pt. for occupational therapy evaluation. Pt. leaving room for cardioversion. not appropriate for therapy services at this time. Nursing aware. Will see post-procedure.
[2023-04-18] MEDS: METOPROLOL TARTRATE 50 MG TAB PO ×2 (08:31→20:44)
--- NOTE | 2023-04-18 09:04 | WPDMODSED ---
Moderate Sedation Note-Pt Data Patient Data Diagnosis: Atrial flutter Present Complaint: Atrial flutter Procedure to be performed/Plan: 1. Multiplane transesophageal echocardiography with color-flow pulse-wave Doppler 2. Moderate sedation 3. Electrical cardioversion 4. Agitated saline study Allergies Allergy/AdvReac Type Severity Reaction Status Date / Time No Known Allergies Allergy Verified 04/06/23 13:14 Home Medications Medication Instructions Recorded Confirmed Type lisinopril 20 1 tablet PO DAILY #90 tabs 05/05/22 04/15/23 Rx mg-hydrochlorothiazide 25 mg tablet propranolol 80 mg capsule,24 80 mg PO DAILY #90 caps 04/11/23 04/15/23 Rx hr,extended release Current Medications: Active Medications Acetaminophen (Acetaminophen 325 Mg Tablet) 650 mg PO Q6H PRN PRN Reason: Mild Pain (1-3) or Fever Last Admin: 04/17/23 20:00 Dose: 650 mg Enoxaparin Sodium (Enoxaparin 80 Mg/0.8 Ml Syringe) 80 mg SUB-Q Q12H [facility] Last Admin: 04/18/23 05:10 Dose: 80 mg Diltiazem HCl (Cardizem 100 Mg/100 Ml) 100 mg in 100 mls @ 15 mls/hr IV CONT .Q6H40M [facility] Last Admin: 04/18/23 04:34 Dose: 15 mg/hr, 15 mls/hr Sodium Chloride (Normal Saline Iv) 1,000 mls @ 125 mls/hr IV CONT .Q8H [facility] Last Admin: 04/18/23 04:35 Dose: Not Given Lisinopril (Lisinopril 20 Mg Tablet) 20 mg PO DAILY [facility] Stop: 05/16/23 08:59 Last Admin: 04/16/23 08:13 Dose: 20 mg Metoprolol Tartrate (Metoprolol Tartrate 50 Mg Tab) 50 mg PO Q12HR [facility] Last Admin: 04/18/23 08:31 Dose: 50 mg Morphine Sulfate (Morphine Sulfate (*Crx) 2 Mg/Ml Inj) 2 mg IV PUSH Q3H PRN PRN Reason: Pain Rated 7-10 Naloxone HCl (Naloxone Hcl 0.4 Mg/Ml Vial) 0.1 mg IV PUSH Q2M PRN PRN Reason: Opiate Reversal Ondansetron HCl (Ondansetron Inj 4 Mg/2 Ml Vial) 4 mg IV PUSH Q4H PRN PRN Reason: Nausea Oxycodone HCl (Oxycodone Hcl (*Crx) 5 Mg Tab Ir) 5 mg PO Q4H PRN PRN Reason: Pain Rated 7-10 Last Admin: 04/16/23 10:30 Dose: 5 mg Perflutren Lipid Microsphere (Perflutren Lipid Microspheres 1.5 Ml Vial Diluted To 10 Ml Total Volume) 0 ml IV PUSH ONCE PRN; Protocol PRN Reason: adequate visualization Stop: 04/18/23 21:23 Polyethylene Glycol (Polyethylene Glycol 3350 17 Gm Powd.Pack) 17 gm PO QAM MARILU Senna/Docusate Sodium (Senna/Docusate Sodium Tablet) 2 tab PO BID MARILU Last Admin: 04/17/23 17:50 Dose: 2 tab Sedation/Anesthesia: No previous sedation/anesthesia problems (including family history). [facility] Past Medical History Medical History Hypertension Surgical History Surgical History History of History of hip surgery (04/2023) Left ORIF fx History of tonsillectomy and adenoidectomy Family History Family History Father Malignant neoplasm of prostate Acute myocardial infarction Hypertension Grandparent Cerebrovascular accident Mother Alzheimer disease Social History Social History Social History: Patient is retired from working for the [employer]. She lives with her in the been since 1977. They raised 2 daughters. She drinks 3-4 but beers several times a week. She denies any illicit substance use pack of cigarettes per day for 38 years but quit smoking in 2012. Code status: Full code Surrogate decision maker: Smoking packs per day: 1 Smoking cigarettes per day: 20.0 Years smoked: 38 Smoking pack-years: 38.00 Smoking status: Former smoker Tobacco type: cigarettes Second hand tobacco smoke exposure: No Alcohol intake: current Drinks per week: 28 Alcohol use details: 3-4 beers a day several times a week. Substance use: never Substance use type: does not use Do You Feel Safe in your Home?: Yes Lack of Transportation: No Lack o
--- NOTE | 2023-04-18 09:20 | P.PNAN_ITS ---
Anes - Prog Note Post-Op Date/Time: 04/18/23 09:20 Cardiovascular status: normal Respiratory status: normal Airway patency: baseline Mental status: baseline Post-Op hydration status: normal Vital Signs: Last Vital Signs Temp 36.8 C 04/18/23 08:00 Pulse 133 H 04/18/23 09:15 Resp 19 04/18/23 09:15 BP 112/75 04/18/23 09:15 Pulse Ox 96 04/18/23 09:15 O2 Del Method Nasal Cannula 04/18/23 09:15 O2 Flow Rate 3 04/18/23 09:15 Pain Score (VAS): 03/26 I/O: Intake & Output 04/17/23 04/18/23 04/18/23 23:59 07:59 15:59 Intake Total 3550 500 Output Total 1100 1500 Balance 2450 -1000 Laboratory Tests 04/18/23 03:48 04/18/23 03:48 04/18/23 03:48 WBC 17.0 H RBC 3.24 L Hgb 10.7 L Hct 33.0 L MCV 101.9 H MCH 33.0 MCHC 32.4 RDW 12.5 Plt Count 285 MPV 9.4 Immature Gran % (Auto) 0.8 H Neut % (Auto) 88.2 H Lymph % (Auto) 4.9 L [place] % (Auto) 5.9 Eos % (Auto) 0.1 Baso % (Auto) 0.1 L Lymph # (Auto) 0.83 L [place] # (Auto) 1.0 H Eos # (Auto) 0.0 Baso # (Auto) 0.0 Abs Immat Gran (auto) 0.13 H Absolute Neuts (auto) 15.0 H Absolute Nucleated RBC 0.0 Nucleated RBC % 0.0 Sodium 132 L Potassium 4.0 Chloride 104 Carbon Dioxide 21 L Anion Gap 7 L BUN 5 L Creatinine 0.40 L Estim Creat Clear Calc 128 Estimated GFR > 60 Glucose 127 H Calcium 8.6 Post-procedural complaints: none Patient Feedback: Patient satisfied with anesthetic care.
--- NOTE | 2023-04-18 09:30 | WPDTECDV ---
MERRICK with Cardioversion Date of procedure: 04/18/23 Procedure Type: 1. Multiplanar transesophageal echocardiography with color flow and pulse wave Doppler 2. Agitated saline study 3. Electrical cardioversion 4. Moderate sedation Diagnosis: Atrial flutter Indications: Atrial flutter Description of Procedure: After discussing the risks, benefits alternatives of the procedure patient agreeable via verbal and written informed consent. Risks discussed included esophageal rupture perforation, , surgery, bleeding, pain, infection, shock into more problematic heart rhythm, skin irritation or burn or adverse reaction anesthesia. After time-out was taken and after establishing continuous telemetry monitoring, pulse oxygenation and serial blood pressure assessments procedure was initiated Procedure start time 9:07 a.m. Procedure stop time 9:28 a.m. Complications: None Blood loss: None Medications were administered and patient was monitored by Whitney De Los Santos RN Medications given: Hurricaine spray to the hypopharynx x2 for topical anesthetic and a total of 5 mg of Versed and 100 mcg of fentanyl given in divided dosages. Sedation: As detailed above Findings: Merrick: Normal left ventricular size and function ejection fraction 65%. Left ventricle hypertrophy is noted. Normal right ventricular size and function. Mild left atrial enlargement. Mild right atrial enlargement. Mitral valve is normal with mild mitral regurgitation. Tricuspid valve is normal mild tricuspid regurgitation. Pulmonic valve is normal with mild pulmonic regurgitation. Aortic valve is normal trileaflet with mild sclerosis with trivial aortic insufficiency. No pericardial effusion. Aortic root measures 2.8 cm. Left atrial appendage is normal without mass or thrombus. There is what appears to be a pectinate muscle which does not have an appearance of a thrombus and is not hypermobile. Pulse-wave Doppler of 75-100 centimeters/second. Atrial septum is intact without color flow or agitated saline study evidence of shunting. Cardioversion: Successful quaker of sinus rhythm using 175 joules of synchronized biphasic energy from atrial flutter Conclusion: 1. Normal left ventricular size and function mild left ventricular hypertrophy noted 2. Mild biatrial enlargement 3. Mild tricuspid and mitral regurgitation 4. No left atrial appendage thrombus 5. Negative agitated saline study 6. Moderate sedation 7. Successful quaker of sinus rhythm using 175 joules of biphasic synchronized energy.
--- NOTE | 2023-04-18 09:40 | PCPTNOTE ---
Attempted to see patient for PT, however patient was out of the room for a cardioversion.
--- NOTE | 2023-04-18 10:08 | PM.IMPN ---
Progress Note: A&P Assessment and Plan (1) Closed intertrochanteric fracture of left hip: Qualifiers: Encounter type: initial encounter Fracture alignment: nondisplaced Qualified Code(s): S72.145A - Nondisplaced intertrochanteric fracture of left femur, initial encounter for closed fracture Code(s): S72.142A - Displaced intertrochanteric fracture of left femur, initial encounter for closed fracture Status: Acute Assessment and Plan: Patient tripped and fell onto her left hip in the garage. She tripped stepping down into the garage. She did not strike her head or lose consciousness.? Xray showing acute intratrochanteric fracture of the proximal left femur. Patient was admitted. Orthopedics consulted. Patient underwent placement of a left intramedullary hip screw 04/17/23 Pain management per Orthopedics. PT/OT started (2) Atrial flutter with rapid ventricular response: Code(s): I48.92 - Unspecified atrial flutter Status: Acute Assessment and Plan: Patient found to have atrial flutter on admission. Suspect patient has had Aflutter for at least 3 weeks. [id number] =2 (gender and HTN). TSH normal 04/07/23 Echo EF 60-65%, mild pulm HTN, mild bi-atrail enlargement and indeterminate diastolic fxn. Cardiology consulted and apprecaite their input. Metoprolol then Diltiazem IV given and heart rate improved. Lovenox full dose x1 given 04/15 but not continued due to need for surgery. Metoprolol continued. Diltiazem IV added and dose advanced Anticoagulation started Appreciate Cardiology input. Plan for LUZMA today (3) Hypertension: Code(s): I10 - Essential (primary) hypertension Status: Acute Assessment and Plan: Patient's blood pressure was reviewed on 04/17 Blood pressure still low at times. Current BP probably related to cardioversion and medications. Will continue to monitor (4) Hyponatremia: Code(s): E87.1 - Hypo-osmolality and hyponatremia Status: Acute Assessment and Plan: Sodium 130 on admission. TSH and cortisol normal Na better at 132 Plan Code status - full Dvt prophylaxis - Lovenox -> Xarelto Subjective Date/time seen: 04/18/23 10:08 Interval history: 62yo female with HTN here for hip pain after a fall and found to have left hip fracture. Also has been having tachycardia and noted to have AFib/RVR in the ED. Slept okay last night. Pain better controlled. Was able to be up to the commode Exam Narrative: AF 98.3 88/59 83 19 96% Gen - NARD Chest - CTA bilaterally, nml RR CV - Irregular and tachycardic. Tele showing AFlutter with RVR and variable conduction Abd - Soft, NT/ND, Positive BS Ext - No pedal edema. left lateral hip dressings clean and dry Psych - Nml mood and affect Skin - Warm and dry Objective Data Vital Signs Vital Signs: Vital Signs - 24 hr 04/17/23 10:15 04/17/23 10:52 04/17/23 11:45 Temperature 97.3 F L 98.7 F Pulse Rate 67 67 67 Respiratory Rate 14 18 14 Blood Pressure 91/61 L 92/50 L 92/50 L Pulse Oximetry 100 98 99 Oxygen Delivery Nasal Cannula Oxygen Flow Rate 3 04/17/23 12:00 04/17/23 14:00 04/17/23 12:00 Temperature Pulse Rate 67 68 Respiratory Rate Blood Pressure Pulse Oximetry Oxygen Delivery Room Air Oxygen Flow Rate 04/17/23 14:46 04/17/23 15:17 04/17/23 15:29 Temperature 99.4 F Pulse Rate 135 H 137 H Respiratory Rate 16 Blood Pressure 108/51 L Pulse Oximetry 97 Oxygen Delivery Room Air Oxygen Flow Rate 04/17/23 16:00 04/17/23 18:00 04/17/23 16:00 Temperature Pulse Rate 133 H 136 H Respiratory Rate Blood Pressure Pulse Oximetry Oxygen Delivery Room Air Oxygen Flow Rate 04/17/23 19:59 04/17/23 20:00 04/17/23 20:57 Temperature 98.7 F Pulse Rate 139 H 139 H 136 H Respiratory Rate 16 16 Blood Pressure 103/51 L Pulse Oximetry 97 95 Oxygen Delivery Room Air Oxygen
[2023-04-18] MEDS: SENNA/DOCUSATE SODIUM TABLET 2 TAB PO (13:19)
[2023-04-18] MEDS: ACETAMINOPHEN 325 MG TABLET 650 MG PO ×2 (18:26→23:45)
[2023-04-18] MEDS: RIVAROXABAN 20 MG TABLET PO (18:28)
[2023-04-19] VITALS (22 sets, daily range): BP systolic 112–132; BP diastolic 63–75; PULSE 70–98; RESP 16–22; TEMP 36.2–36.8; O2SAT 97–100
--- NOTE | 2023-04-19 07:59 | PM.PNORT ---
Progress Note: A&P Assessment and Plan (1) Closed intertrochanteric fracture of left hip: Qualifiers: Encounter type: subsequent encounter Fracture alignment: nondisplaced Fracture healing: with routine healing Qualified Code(s): S72.145D - Nondisplaced intertrochanteric fracture of left femur, subsequent encounter for closed fracture with routine healing Code(s): S72.142A - Displaced intertrochanteric fracture of left femur, initial encounter for closed fracture Status: Acute Assessment and Plan: Postoperative day 2 left hip intramedullary nail. Operative treatment reviewed with the patient. Unable to be seen yesterday as she was in cardioversion. Cardioversion appears to have been successful. PT/OT with weight-bearing as tolerated. Pain control. DVT prophylaxis and anticoagulation per hospital and cardiac team. Subjective Subjective Date/Time Seen: 04/19/23 07:59 Post Op day: 2 Principal diagnosis: Left hip fracture Interval history: patient awake and alert. Some pain left hip. Denies numbness or tingling. Cardioversion yesterday. Exam Const: General: comfortable; No acute distress Resp: Effort & Inspection: normal respiratory effort and no audible wheezes Extrem: Right lower extremity: lower leg ( Negative Homans sign), ankle Details: normal ROM ( dorsiflexion and plantar flexion intact) and foot Details: vascular exam Details: dorsalis pedis pulse present and normal capillary refill, tendon exam Details: active flexion normal and active extension normal and motor-sensory exam Details: light-touch normal Location: in all toes; no edema Left lower extremity: normal to inspection, ankle Details: normal ROM and foot Details: vascular exam Details: dorsalis pedis pulse present and normal capillary refill and motor-sensory exam light-touch normal in all toes; no edema Objective Data Vital Signs Vital Signs: Vital Signs - 24 hr 04/18/23 08:00 04/18/23 08:31 04/18/23 08:52 Temperature 98.3 F Pulse Rate 137 H 136 H 136 H Respiratory Rate 20 20 Blood Pressure 117/53 L 119/66 Pulse Oximetry 94 95 Oxygen Delivery Room Air Oxygen Flow Rate 04/18/23 09:05 04/18/23 09:15 04/18/23 09:30 Temperature Pulse Rate 134 H 133 H 81 Respiratory Rate 22 H 19 18 Blood Pressure 114/70 112/75 95/62 L Pulse Oximetry 99 96 99 Oxygen Delivery Nasal Cannula Nasal Cannula Nasal Cannula Oxygen Flow Rate 3 3 3 04/18/23 09:45 04/18/23 09:10 04/18/23 09:20 Temperature Pulse Rate 83 134 H 117 H Respiratory Rate 19 20 14 Blood Pressure 88/59 L 112/73 101/76 Pulse Oximetry 96 99 96 Oxygen Delivery Room Air Nasal Cannula Nasal Cannula Oxygen Flow Rate 3 3 04/18/23 09:25 04/18/23 10:00 04/18/23 10:15 Temperature Pulse Rate 145 H 81 82 Respiratory Rate 18 16 17 Blood Pressure 101/59 L 92/60 L 95/60 L Pulse Oximetry 100 95 95 Oxygen Delivery Nasal Cannula Room Air Room Air Oxygen Flow Rate 3 04/18/23 12:00 04/18/23 08:00 04/18/23 12:00 Temperature 97.3 F L Pulse Rate 82 136 H 92 Respiratory Rate 18 Blood Pressure 93/59 L Pulse Oximetry 98 Oxygen Delivery Oxygen Flow Rate 04/18/23 16:00 04/18/23 14:00 04/18/23 16:00 Temperature 98.7 F Pulse Rate 101 H 98 97 Respiratory Rate 18 Blood Pressure 113/65 Pulse Oximetry 100 Oxygen Delivery Oxygen Flow Rate 04/18/23 18:00 04/18/23 08:00 04/18/23 12:00 Temperature Pulse Rate 104 H Respiratory Rate Blood Pressure Pulse Oximetry Oxygen Delivery Room Air Room Air Oxygen Flow Rate 04/18/23 16:00 04/18/23 20:44 04/18/23 20:04 Temperature 99.0 F Pulse Rate 108 H 103 H Respiratory Rate 16 Blood Pressure 121/73 Pulse Oximetry 98 Oxygen Delivery Room Air Oxygen Flow Rate 04/18/23 20:00 04/18/23 22:00 04/18/23 20:00 Temperature Pulse Rate 108 H 93 108 H Respiratory Rate 16 Blood Pressure Pulse Oximetry 98 Oxygen Delive
[2023-04-19] MEDS: METOPROLOL TARTRATE 50 MG TAB PO ×2 (09:33→20:36)
[2023-04-19] MEDS: SENNA/DOCUSATE SODIUM TABLET 2 TAB PO (09:33)
[2023-04-19] MEDS: ACETAMINOPHEN 325 MG TABLET 650 MG PO ×2 (09:34→16:49)
--- NOTE | 2023-04-19 10:33 | PM.PNCARD ---
Progress Note: A&P Assessment and Plan (1) Atrial flutter with rapid ventricular response: Code(s): I48.92 - Unspecified atrial flutter Status: Acute Assessment and Plan: Remains in sinus rhythm s/p DCCV yesterday. Continue metoprolol, but can shift to Toprol XL 100mg daily starting tomorrow. She has a chads Vasc score of 2 and almost 3 because of age gender and hypertension. Continue Xarelto for cardioembolic risk reduction. Cardiology will sign off please call with any questions. (2) Hypertension: Code(s): I10 - Essential (primary) hypertension Status: Acute Assessment and Plan: continue lisinopril/hydrochlorothiazide and metoprolol (3) Electrolyte abnormality: Code(s): E87.8 - Other disorders of electrolyte and fluid balance, not elsewhere classified Status: Acute Assessment and Plan: Replaced (4) Closed intertrochanteric fracture of left hip: Qualifiers: Encounter type: subsequent encounter Fracture alignment: nondisplaced Fracture healing: with routine healing Qualified Code(s): S72.145D - Nondisplaced intertrochanteric fracture of left femur, subsequent encounter for closed fracture with routine healing Code(s): S72.142A - Displaced intertrochanteric fracture of left femur, initial encounter for closed fracture Status: Acute Assessment and Plan: Post surgery. Patient is at low risk of perioperative cardiovascular complications Subjective Date/time seen: 04/19/23 10:33 Interval history: 62yo female with HTN here for hip pain after a fall and found to have left hip fracture. Also has been having tachycardia and noted to have AFib/RVR in the ED. Date of service 04/17/2023: She is status post hip surgery earlier today. Blood pressure is little low. Heart rate is controlled on diltiazem drip. She denies any chest pain or shortness of breath Date of service 04/19/2023: Remains in sinus rhythm s/p DCCV yesterday Review of Systems Review of Systems: All systems reviewed & are unremarkable except as noted in HPI and below Constitutional: Constitutional: Denies body ache(s) and Denies excessive sweating Eyes: Eyes: Denies blurry vision ENT: Reports Normal hearing present Cardiovascular: Cardiovascular: Denies chest pain Respiratory: Respiratory: Denies cough Gastrointestinal: Gastrointestinal: Denies abdominal pain Genitourinary: Genitourinary: Denies hematuria Musculoskeletal: Musculoskeletal: Denies back pain and Reports arthralgias Integumentary/Breasts: Skin/Breast: Denies dry skin Neurologic: Reports Normal hearing present and Denies Abnormal speech present Psychiatric: Psychiatric: Denies anxiety Endocrine: Endocrine: Denies excessive sweating Hematologic/Lymphatic: Hematologic/Lymphatic: Denies easy bleeding Allergic/Immunologic: Allergic/Immunologic: Denies GI upset with certain foods Exam Narrative: Awake alert oriented appears to be in no acute distress Appears stated age Const: General: comfortable and no acute distress HENMT: Face/Nose/Sinus: Normal nares present Mouth: Yes moist mucous membranes Eyes: General: appearance normal, both eyes and all related structures Sclera: sclerae normal Neck: Neck: supple and no JVD Carotids: no bruits Chest: Other: No reproducible chest wall pain to palpation Resp: Effort & Inspection: normal respiratory effort Auscultation: clear to auscultation bilaterally Cardio: Rate: regular rate Rhythm: regular rhythm Heart sounds: no murmurs GI: Inspection: non-distended Auscultation: normal bowel sounds Skin: General skin exam: normal color and no rashes or lesions noted Neuro: General: No gait normal Cranial nerves: Yes Normal hearing present Speech: normal speech and No Abnormal speech present Extrem: General: abnormal to inspection Psych: Mental Status: mental status grossly normal Objective Data Vital Signs Vi
--- NOTE | 2023-04-19 15:52 | PM.IMPN ---
Progress Note: A&P Assessment and Plan (1) Closed intertrochanteric fracture of left hip: Qualifiers: Encounter type: subsequent encounter Fracture alignment: nondisplaced Fracture healing: with routine healing Qualified Code(s): S72.145D - Nondisplaced intertrochanteric fracture of left femur, subsequent encounter for closed fracture with routine healing Code(s): S72.142A - Displaced intertrochanteric fracture of left femur, initial encounter for closed fracture Status: Acute Assessment and Plan: Patient tripped and fell onto her left hip in the garage. She tripped stepping down into the garage. She did not strike her head or lose consciousness.? Xray showing acute intratrochanteric fracture of the proximal left femur. Patient was admitted. Orthopedics consulted. Patient underwent placement of a left intramedullary hip screw 04/17/23 Leukocytosis felt related to stress response. POD #2. Pain management per Orthopedics. Continue PT/OT. Repeat labs tomorrow Care coordination working on placement. (2) Atrial flutter with rapid ventricular response: Code(s): I48.92 - Unspecified atrial flutter Status: Acute Assessment and Plan: Patient found to have atrial flutter on admission. Suspect patient has had Aflutter for at least 3 weeks. [id number] =2 (gender and HTN). TSH normal 04/07/23 Echo EF 60-65%, mild pulmonary HTN, mild bi-atrial enlargement and indeterminate diastolic fxn. Cardiology consulted and appreciate their input. Metoprolol then Diltiazem IV given and heart rate improved. Lovenox full dose x1 given 04/15 but not continued due to need for surgery. Successful LUZMA cardioversion 04/18/23 Anticoagulation started Appreciate Cardiology input. (3) Hypertension: Code(s): I10 - Essential (primary) hypertension Status: Acute Assessment and Plan: Patient's blood pressure was reviewed on 04/18 Blood pressure stable. Will continue to monitor (4) Hyponatremia: Code(s): E87.1 - Hypo-osmolality and hyponatremia Status: Acute Assessment and Plan: Sodium 130 on admission. TSH and cortisol normal Na better at 132 yesterday Plan Code status - full Dvt prophylaxis - Lovenox -> Xarelto Subjective Date/time seen: 04/19/23 15:52 Interval history: 62yo female with HTN here for hip pain after a fall and found to have left hip fracture. Also has been having tachycardia and noted to have AFib/RVR in the ED. Slept well. No n/v. No CP or SOB. Therapy going okay but not able to do as much as she thought she would. Successful cardioversion yesterday. She is interested in going to acute rehab Exam Narrative: AF 98.2 120/66 79 22 99% ra Gen - NARD Chest - CTA bilaterally, nml RR CV - RRR S1/S2. Tele showing NSR Abd - Soft, NT/ND, Positive BS Ext - No pedal edema. left lateral hip dressings not visualized today Psych - Nml mood and affect Skin - Warm and dry Objective Data Vital Signs Vital Signs: Vital Signs - 24 hr 04/18/23 16:00 04/18/23 16:00 04/18/23 18:00 Temperature 98.7 F Pulse Rate 101 H 97 104 H Respiratory Rate 18 Blood Pressure 113/65 Pulse Oximetry 100 Oxygen Delivery 04/18/23 16:00 04/18/23 20:44 04/18/23 20:04 Temperature 99.0 F Pulse Rate 108 H 103 H Respiratory Rate 16 Blood Pressure 121/73 Pulse Oximetry 98 Oxygen Delivery Room Air 04/18/23 20:00 04/18/23 22:00 04/18/23 20:00 Temperature Pulse Rate 108 H 93 108 H Respiratory Rate 16 Blood Pressure Pulse Oximetry 98 Oxygen Delivery Room Air 04/18/23 23:48 04/19/23 00:00 04/19/23 00:00 Temperature 98.3 F Pulse Rate 92 92 92 Respiratory Rate 16 16 Blood Pressure 127/74 Pulse Oximetry 100 100 Oxygen Delivery Room Air 04/19/23 00:00 04/19/23 03:56 04/19/23 04:00 Temperature Pulse Rate 89 89 83 Respiratory Rate 16 Blood Pressure Pulse Oximetry 100 Oxy
[2023-04-19] MEDS: RIVAROXABAN 20 MG TABLET PO (16:49)
[2023-04-20] VITALS (9 sets, daily range): BP systolic 120–128; BP diastolic 64–67; PULSE 72–105; RESP 16–22; TEMP 36.3–36.8; O2SAT 98–99
[2023-04-20 04:57] LABS: Basophils Percent Auto 0.3 % (0.2-1.2); Eosinophils Absolute Auto 0.2 K/mm3 (0-0.3); Eosinophils Percent Auto 1.7 % (0-4.4); Hematocrit 32.2 % (37.0-47.0); Hemoglobin 10.3 g/dL (12.0-15.0); Immature Granulocyte Absolute 0.04 K/mm3 (0.00-0.031); Immature Granulocyte Percent A 0.4 % (0-0.5); Lymphocytes Absolute Auto 1.84 K/mm3 (0.9-3.2); Lymphocytes Percent Auto 20.7 % (18.3-44.2); Mean Corpuscular Hemoglobin 32.3 pg (26-34); Mean Corpuscular Volume 100.9 fl (80-100); Mean Platelet Volume 8.8 fl (7.4-10.4); Monocytes Absolute Auto 0.7 K/mm3 (0.1-0.6); Monocytes Percent Auto 7.6 % (2.6-8.5); Neutrophils Absolute Auto 6.2 K/mm3 (1.3-6.7); Neutrophils Percent Auto 69.3 % (45.5-73.1); Platelet Count Result 362 k/mm3 (150-375); Red Blood Count 3.19 M/mm3 (4.2-5.4); Red Cell Distribution Width 12.3 % (11.5-14.5); White Blood Count 8.9 K/mm3 (4.5-10.0)
[2023-04-20 05:12] LABS: Anion Gap 6 mmol/L (8-16); Blood Urea Nitrogen 7 mg/dL (7-17); Calcium 8.8 mg/dL (8.4-10.2); Carbon Dioxide 27 mmol/L (22-30); Chloride 102 mmol/L (98-107); Estimated CRCL calculation 94 ml/min; Estimated Glomerular Filt Rate > 60; Glucose 93 mg/dL (65-110); Potassium 3.9 mmol/L (3.4-5.0); Sodium 135 mmol/L (137-145)
[2023-04-20] MEDS: METOPROLOL TARTRATE 50 MG TAB PO (08:52)
[2023-04-20] MEDS: ACETAMINOPHEN 325 MG TABLET 650 MG PO ×2 (08:52→15:53)
--- NOTE | 2023-04-20 13:15 | PM.DS ---
DS: Admitting Diagnosis Discharge Date 04/20/27 Admitting Diagnosis 1. Fall 2. Left hip pain: acute intratrochanteric fracture the proximal left femur. 3. Atrial flutter w/RVR DS: Discharge Diagnosis Discharge Diagnosis (1) Closed intertrochanteric fracture of left hip: Qualifiers: Encounter type: subsequent encounter Fracture alignment: nondisplaced Fracture healing: with routine healing Qualified Code(s): S72.145D - Nondisplaced intertrochanteric fracture of left femur, subsequent encounter for closed fracture with routine healing Code(s): S72.142A - Displaced intertrochanteric fracture of left femur, initial encounter for closed fracture Status: Acute Assessment and Plan: Patient tripped and fell onto her left hip in the garage. She tripped stepping down into the garage. She did not strike her head or lose consciousness.? Xray showing acute intratrochanteric fracture of the proximal left femur. Patient was admitted. Orthopedics consulted. Patient underwent placement of a left intramedullary hip screw 04/17/23 Leukocytosis felt related to stress response. POD #2. Pain management per Orthopedics. Continue PT/OT. Repeat labs tomorrow Care coordination working on placement. (2) Atrial flutter with rapid ventricular response: Code(s): I48.92 - Unspecified atrial flutter Status: Acute Assessment and Plan: Patient found to have atrial flutter on admission. Suspect patient has had Aflutter for at least 3 weeks. [id number] =2 (gender and HTN). TSH normal 04/07/23 Echo EF 60-65%, mild pulmonary HTN, mild bi-atrial enlargement and indeterminate diastolic fxn. Cardiology consulted and appreciate their input. Metoprolol then Diltiazem IV given and heart rate improved. Lovenox full dose x1 given 04/15 but not continued due to need for surgery. Successful LUZMA cardioversion 04/18/23 Anticoagulation started Appreciate Cardiology input. (3) Hypertension: Code(s): I10 - Essential (primary) hypertension Status: Acute Assessment and Plan: Patient's blood pressure was reviewed on 04/18 Blood pressure stable. Will continue to monitor (4) Hyponatremia: Code(s): E87.1 - Hypo-osmolality and hyponatremia Status: Acute Assessment and Plan: Sodium 130 on admission. TSH and cortisol normal Na better at 132 yesterday Plan Code status - full Dvt prophylaxis - Lovenox -> Xarelto DS: Summary Hospital Course Reason for hospitalization: Fall Acute intratrochanteric fracture the proximal left femur. Hospital Course: Chief Complaint: Left hip pain after tripping and falling Narrative: 62-year-old female with past medical history of essential hypertension and arthritis who presented to the ER after she had a trip and fall resulting in left hip pain.? She reported that she stepped down into the garage onto the 1st step and got tripped up.? She stumbled and was trying to catch herself but still fell.? She landed on her left side and kept trying to straighten out her leg.? She was unable to straighten out her leg in finally called for help.? X-ray performed in the ER demonstrated acute intratrochanteric fracture the proximal left femur. On arrival to the ER the patient was noted to be tachycardic.? The patient has had a mention of tachycardia from office visits with her primary as far back as June 2022.? The patient had purchased a fitness tracker about 3 weeks ago.? Ever since she put it on it is been telling her that her heart rate is high.? Most notably her heart rate is been staying high when she is in bed and sleeping up to 130.? She went to her primary care physician's office 04/06/2023 at which time a Holter monitor was ordered as well as some basic labs.? Her Holter monitor could not be arranged until the middle of April..? She has not been having any chest pain.? She denies any shortness of breath or palpitations.? She has been will climb step
--- NOTE | 2023-04-20 15:33 | PC.NURSE ---
Report called to [facility] [place]
== END 2023-04-20 16:30 | DRG 481 ==
LOC: ANHED 20:08 → ANHIMU 23:02
PROVIDERS: Internal Medicine; Internal Medicine Cardiovascular Disease; Orthopaedic Surgery; Admitting Provider Internal Medicine; Emergency Provider Emergency Medicine; PCP Family Medicine Adolescent Medicine; Visit Provider Internal Medicine
PROC: 0QS736Z Reposition Left Upper Femur with Intramedullary Internal Fixation Device, Percutaneous Approach (ICD-10-PCS; CPT 27245; principal; 2023-04-17 07:30)
PROC: B24BZZ4 Ultrasonography of Heart with Aorta, Transesophageal (ICD-10-PCS; CPT 93312; principal; 2023-04-18 09:00)
PROC: 5A2204Z Restoration of Cardiac Rhythm, Single (ICD-10-PCS; 2023-04-18 09:00)
DX: S72.142A Displaced intertrochanteric fracture of left femur, initial encounter for closed fracture (principal); E87.1 Hypo-osmolality and hyponatremia; I48.92 Unspecified atrial flutter; I10 Essential (primary) hypertension; Z87.891 Personal history of nicotine dependence
CPT/HCPCS: 36415; 71045; 73502; 80048; 80053; 82533; 82570; 83735; 84300; 85025; 85027; 85610; 85730; 86850; 86900; 86901; 92960; 93005; 93306; 93312; 93320; 93325; 96365; 96366; 96375; 96376; 97110; 97116; 97161; 97165; 97530; 97535; 99199; 99285; A9270; C1713; G0378; J0690; J1100; J1650; J2250; J2270; J2405; J2704; J3010; J3475; J7030; J7050; J7120

== ENCOUNTER 2024-03-16 12:01 | Emergency (ER) | payer MEDICARE, SELFPAY ==
[2024-03-16] VITALS (25 sets, daily range): BP systolic 87–133; BP diastolic 50–82; PULSE 61–136; RESP 15–27; TEMP 36.4; O2SAT 95–100
--- NOTE | ~2024-03-16 | XR_ITS ---
EXAMINATION: XR chest 1V 03/16/2024 13:05 INDICATION: Tachycardia arrhythmias PROCEDURE: PA view of the chest COMPARISON: 04/15/2023 FINDINGS: The lungs are clear. The cardiomediastinal silhouette is within normal limits. There are no pleural effusions. There is no pneumothorax suspected. IMPRESSION: 1: NO ACUTE CARDIOPULMONARY DISEASE. Reviewed, dictated and finalized at location A. LE SUPERVISOR
--- OUTSIDE RECORDS SUMMARY | 2024-03-16 12:04 | XMS_ITS | Clinical Summary ---
Author Organization [facility] Address [address] [place] [address]. [place], [place] [address] [place] [id number] Care Team Providers Care Information Security Associate Name Role Phone Sanna Rasheed MD Primary Care Provider +1- [phone] Social History Tobacco Use Types Packs/Day Years Used Date Smoking Tobacco: Never Assessed Comments Unknown Sex and Gender Information Value Date Recorded Sex Assigned at Not on file Legal Sex Female 4:31 PM CDT Gender Identity Not on file Sexual Orientation Not on file Plan of Treatment Health Maintenance Due Date Last Done Comments Colorectal Cancer Screening Colonoscopy (10 Years) 1960 Hepatitis C 1976 DTaP, Tdap and Td Vaccines (1 - Tdap) 1977 Dexa Scan (General) 04/30/2023 Pneumococcal Vaccine: 65+ Years (1 of 1 - PCV) 04/30/2023 COVID-19 Vaccine ( - season) 2023 02/17/2021, 05/16/2020, 04/25/2020 Influenza Adult (#1) 2023 12/28/2021, 11/22/19 20 Mammogram Screening 10/25/2025 10/26/2023, 05/28/2022, 04/03/2021, Additional history exists RSV Immunization or 60+ Years (1 - 1-dose 75+ series) 2033 Zoster Vaccines Completed 11/10/2021, 05/25/2021 Meningococcal B Vaccine Aged Out No l onger eligible based on patient's age to complete this topic Meningococcal Vaccine Aged Out No park candace eligible based on patient's age to complete this topic Pneumococcal Vaccine: Pediatrics (0 to 5 Years) and At-Risk Patients (6 to 64 Years) Aged Out No longer eligible based on patient's age to complete this topic RSV Immunizations Under 20 Months Aged Out No longer eligible based on patient's age to complete this topic Procedures Procedure Name Priority Date/Time Associated Diagnosis Comments MG SCREENING W GALLO APOLLO DIGI Routine 10/26/2023 1:24 PM CDT Screening mammogram for breast cancer from Last 3 Months or Most Recently Relevant to Health Maintenance Results * MG SCREENING W GALLO APOLLO DIGI (10/26/2023 1:24 PM CDT) Anatomical Region Laterality Modality Breast Bilateral Mammography 10/26/2023 1:38 PM CDT Impressions 10/26/2023 1:39 PM CDT IMPRESSION: ??No significant interval change. No mammographic evidence of malignancy. ? RECOMMENDATION: ??Routine ScreeningBilateral OVERALL IMAGING ASSESSMENT: ACR BI-RADS 1 - NEGATIVE. ?? Ordered By: SANNA RASHEED Interpreted By: Jasiel Campbell, 10/26/2023 1:38 PM Narrative 10/26/2023 1:39 PM CDT [address] [address] EXAMINATION: MG SCREENING W GALLO APOLLO DIGI ? INDICATIONS: Screening TECHNIQUE: Digital full field CC and MLO screening mammography bilaterally to include 3-D Tomosynthesis technique. This study was read with the assistance of a computer-aided detection system. HISTORY: No reported breast complaint. No documented personal or first degree family history of breast cancer. No documented prior breast procedure. COMPARISON: Multiple prior examinations available for comparison dating back to 03/22/2007, the most recent of 05/28/2022, 04/03/2021, and 02/01/2020. TISSUE DENSITY: There are scattered areas of fibroglandular density. FINDINGS: No suspicious microcalcification or mass. No developing asymmetry or architectural distortion. No axillary adenopathy. Sanna Rasheed MD MAMMO Final Resu lt from Last 3 Months or Most Recently Relevant to Health Maintenance Insurance [facility] BLUE [facility] MEDICARE Care Teams Information Security Associate Relationship Specialty Start Date End Date Sanna Rasheed MD [address] [address] PCP - General 08/21/15
--- NOTE | 2024-03-16 12:07 | ECG_ITS ---
Test Date: 2024-03-16 12:26:50 Measurements Intervals [place] Rate: 134 P: 0 OK: 0 QRS: 48 QRSD: 92 T: 68 QT: 372 QTc: 556 Interpretive Statements ATRIAL FLUTTER/TACHYCARDIA WITH RAPID VENTRICULAR RESPONSE No previous ECG available for comparison Electronically Signed On 03-16-2024 14:41:57 MANGLE FEEDER by Sandeep Rios M.D.
--- NOTE | 2024-03-16 12:17 | ED_ITS ---
HPI - Arrhythmia/Palpitations General Chief Complaint: Arrhythmia/Palpitations Stated Complaint: palpitations Time Seen by Provider: 03/16/24 12:17 Focused HPI: This is a 63 year old female that presents to the ER for atrial flutter. Reports known history of this. Presents from Dr. Stout's office for elevated rate. She took her Metoprolol this morning, 100mg. She has been taking her medication as prescribed. Reports her fit bit was buzzing that her heart rate was elevated. Denies chest pain, shortness of breath. GENERAL: Well-appearing, well-nourished, and in no acute distress. HEAD: Normocephalic, atraumatic. CHEST: Clear to auscultation. ?No respiratory distress. HEART: Irregularly irregular? NEURO: ?Alert and oriented x3. Patient screened in triage and initial orders placed.? ?Additional care and disposition to be based upon?diagnostic testing and treatment. Related Data Allergies Allergy/AdvReac Type Severity Reaction Status Date / Time No Known Allergies Allergy Verified 03/16/24 12:02 [facility] Past Medical History Medical History Hypertension Surgical History Surgical History Displaced intertrochanteric fracture of left femur, initial encounter for closed fracture History of History of hip surgery (04/2023) Left ORIF fx History of tonsillectomy and adenoidectomy Family History Family History Father Malignant neoplasm of prostate Acute myocardial infarction Hypertension Grandparent Cerebrovascular accident Mother Alzheimer disease Social History Social History Social History: Patient is retired from working for the [email or web address]. She lives with her in the been since 1977. They raised 2 daughters. She drinks 3-4 but beers several times a week. She denies any illicit substance use pack of cigarettes per day for 38 years but quit smoking in 2012. Code status: Full code Surrogate decision maker: Smoking packs per day: 1 Smoking cigarettes per day: 20.0 Years smoked: 38 Smoking pack-years: 38.00 Smoking status: Former smoker Tobacco type: cigarettes Second hand tobacco smoke exposure: No Alcohol intake: current Drinks per week: 28 Alcohol use details: 3-4 beers a day several times a week. Substance use: never Substance use type: does not use Do You Feel Safe in your Home?: Yes Lack of Transportation: No Lack of Food: Never True Current Housing: I Have Housing Concerned About Future Housing: No Difficulty Paying Gas/Electric Bills: No Difficulty Paying for Meds: No Currently Unemployed: No Education: High School Diploma/GED Difficulty w/ Childcare or Family Care: No Living arrangements: with family Occupation/Education: retired Gender identity (if verbalized by the patient): Female Sexual Orientation (if Verbalized by the Patient): Straight or Heterosexual Spiritual care concerns: No Agree to blood products: Yes Course Vital Signs Vital signs: Vital Signs Temperature 97.5 F L 03/16/24 12:15 Pulse Rate 134 H 03/16/24 12:15 Respiratory Rate 16 03/16/24 12:15 Blood Pressure 124/78 03/16/24 12:15 Pulse Oximetry 99 03/16/24 12:15 Temperature 97.5 F L 03/16/24 12:15 Pulse Rate 134 H 03/16/24 12:15 Respiratory Rate 16 03/16/24 12:15 Blood Pressure 124/78 03/16/24 12:15 Pulse Oximetry 99 03/16/24 12:15 Discharge Plan Discharge Patient Language: Kazakh Prescriptions: No Action Xarelto 20 mg Tablet 20 mg PO DAILY@1700 Qty: 60 0RF metoprolol tartrate 50 mg Tablet 50 mg PO Q12HR Qty: 60 0RF Follow-up/Referrals: Dimitri Rasheed MD [Primary Care Provider] -
--- NOTE | 2024-03-16 12:33 | ED_ITS ---
HPI - Arrhythmia/Palpitations General Chief Complaint: Arrhythmia/Palpitations Stated Complaint: palpitations Time Seen by Provider: 03/16/24 12:17 Source: patient Mode of arrival: ambulatory Limitations: no limitations History of Present Illness HPI narrative: 63 YEARS OLD WHITE FEMALE CAME FROM HER CARDIOLOGY OFFICE WITH A FLUTTER. PATIENT REPORTS INTERMITTENT INCREASING OF HER HEART RATE OFTEN ON FOR THE LAST 3 DAYS, DENIES AGGRAVATING OR RELIEVING FACTORS. SHE DENIES ANY CHEST PAIN OR SHORTNESS OF BREATH. CURRENTLY PATIENT IS ASYMPTOMATIC, ALTHOUGH THE MONITOR SHOWING TACHYCARDIA AT 132 BEATS PER MINUTE. SHE DENIES ANY FEVER, CHILLS, NAUSEA, VOMITING, ABDOMINAL PAIN, BACK PAIN OR URINARY SYMPTOMS. PATIENT CURRENTLY ON METOPROLOL AND XARELTO PATIENT REPORT HAVING SIMILAR SYMPTOMS 1 YEAR AGO REQUIRED CARDIOVERSION Related Data Allergies Allergy/AdvReac Type Severity Reaction Status Date / Time No Known Allergies Allergy Verified 03/16/24 12:02 Review of Systems 2 Review of Systems: All systems reviewed & are unremarkable except as noted in HPI and below PMFSH Past Medical History Medical History Hypertension Surgical History Surgical History Displaced intertrochanteric fracture of left femur, initial encounter for closed fracture History of hip surgery (04/2023) Left ORIF fx History of History of tonsillectomy and adenoidectomy Family History Family History Father Malignant neoplasm of prostate Acute myocardial infarction Hypertension Grandparent Cerebrovascular accident Mother Alzheimer disease Social History Social History Social History: Patient is retired from working for the [employer]. She lives with her in the been since 1977. They raised 2 daughters. She drinks 3-4 but beers several times a week. She denies any illicit substance use pack of cigarettes per day for 38 years but quit smoking in 2012. Code status: Full code Surrogate decision maker: Smoking packs per day: 1 Smoking cigarettes per day: 20.0 Years smoked: 38 Smoking pack-years: 38.00 Smoking status: Former smoker Tobacco type: cigarettes Second hand tobacco smoke exposure: No Alcohol intake: current Drinks per week: 28 Alcohol use details: 3-4 beers a day several times a week. Substance use: never Substance use type: does not use Do You Feel Safe in your Home?: Yes Lack of Transportation: No Lack of Food: Never True Current Housing: I Have Housing Concerned About Future Housing: No Difficulty Paying Gas/Electric Bills: No Difficulty Paying for Meds: No Currently Unemployed: No Education: High School Diploma/GED Difficulty w/ Childcare or Family Care: No Living arrangements: with family Occupation/Education: retired Gender identity (if verbalized by the patient): Female Sexual Orientation (if Verbalized by the Patient): Straight or Heterosexual Spiritual care concerns: No Agree to blood products: Yes Exam 2 Narrative: GENERAL APPEARANCE: WELL-DEVELOPED, WELL-NOURISHED SKIN: NORMAL COLOR HEAD: NORMOCEPHALIC, NONTRAUMATIC EYES: CLEAR CONJUNCTIVA ENT: OROPHARYNX NORMAL, EARS NORMAL, NOSE NORMAL NECK: SUPPLE, NONTENDER CHEST AND RESPIRATORY: AIRWAY PATENT, NO RESPIRATORY DISTRESS, NO ACCESSORY MUSCLE USE HEART: TACHYCARDIA ABDOMEN: SOFT, NONTENDER, NO ORGANOMEGALY, QUIET BOWEL SOUNDS VASCULAR: NORMAL PERIPHERAL PULSES, NORMAL CAPILLARY REFILL. MUSCULOSKELETAL: NORMAL RANGE OF MOTION, NONTENDER BACK NEUROLOGIC: ALERT AND ORIENTED ?3, CLINICAL EDUCATION ACADEMIC COORDINATOR IS NORMAL TESTED, NO GROSS MOTOR DEFICIT Course Consultations Consultation #1: DR. CURT Heard RECOMMENDED CARDIOVERSION, DC HOME ONCE CONVERTED TO NORMAL SINUS RHYTHM TELL PATIENT THAT ELECTROPHYSIOLOGIC STUDY WAS SCHEDULED FOR POSSIBLE CARDIAC ABLATION Date: 03/16/24 Vital Signs Vital signs: Vital Signs Temperature 36.4 C L 03/16/24 12:15 Pulse Rate 134 H 03/16/24 12:15 Respiratory Rate 16 03/16/24 12:15 Blood Pressure 124/78 03/16/24 12:15 Pulse Oximetry 99 03/16/24 12:15 Temperature 36.4 C 03/16/24 17:25 Pulse Rate 61 03/16/24 17:25 Respiratory Rate 18 03/16/24 17:25 Blood Pressure 88/50 L 03/16/24 17:25 Pulse Oximetry 98 03/16/24 17:25 Oxygen Delivery Nasal Cannula 03/16/24 17:25 Oxygen Flow Rate 2 03/16/24 17:25 Procedures Other Procedure Procedure 1: Other Procedure: ATRIAL FLUTTER WITH RAPID VENTRICULAR RESPONSE, NOT IMPROVING ON CARDIZEM DRIP CARDIOVERSION PROCEDURE 10 MG OF VALIUM IV, 100 JOULE CONVERTED TO NORMAL SINUS RHYTHM REPEATED EKG SHOWING NORMAL SINUS RHYTHM AT 65 BEATS PER MINUTE MDM - Arrhythmia/Palpitations MDM Narrative Medical decision making narrative: PATIENT CAME TO THE ED WITH INCREASED HEART RATE DEFERRED TO OUR EMERGENCY ROOM BY HER SALES AND SERVICE ASSOCIATE FOR FURTHER MANAGEMENT. VITAL SIGNS SHOWING BLOOD PRESSURE 124/78, HEART RATE 134 TACHYCARDIA, REGULAR, OTHERWISE INSIGNIFICANT PHYSICAL EXAMINATION SHOWING ASYMPTOMATIC PATIENT, DOES NOT LOOK IN PAIN OR DISTRESS, MONITORING SHOWING TACHYCARDIA AT 132 BEATS PER MINUTE DIFFERENTIAL DIAGNOSIS A FLUTTER WITH RVR, ELECTROLYTE IMBALANCE, CORONARY ARTERY DISEASE, DEHYDRATION BLOOD WORKUP TODAY INCLUDES CBC, CMP, TROPONIN SHOWED BNP 1370 otherwise insignificant abnormalities EKG ON ARRIVAL SHOWED A FLUTTER AT 134 BEATS PER MINUTE WITH RVR Chest x-ray showed no acute abnormality PATIENT RECEIVED CARDIZEM BOLUS AND DRIP WITHOUT ANY CHANGES, CARDIOVERSION, 100 JOULE, 10 MG VALIUM IV, CONVERTED TO NORMAL SINUS RHYTHM. PATIENT TOLERATED THE PROCEDURE WELL, NO COMPLICATION DISCHARGED HOME, DISCUSSED WITH DR. ELIAS Differential Diagnosis Differential diagnosis: Likely other (As above) Medical Records Attestation: I reviewed the patient's medical records. Lab Data Attestation: I reviewed the patient's lab results. 03/16/24 12:48 03/16/24 12:48 Labs: Lab Results 03/16/24 03/16/24 Range/Units 12:48 15:42 WBC 8.6 (4.5-10.0) K/mm3 RBC 4.25 (4.2-5.4) M/mm3 Hgb 14.0 D (12.0-15.0) g/dL Hct 41.6 (37.0-47.0) % MCV 97.9 (80-100) fl MCH 32.9 (26-34) pg MCHC 33.7 (32-36) g/dl RDW 12.9 (11.5-14.5) % Plt Count 385 H (150-375) k/mm3 MPV 8.7 (7.4-10.4) fl Immature Gran % (Auto) 0.2 (0-0.5) % Neut % (Auto) 76.5 H (45.5-73.1) % Lymph % (Auto) 13.6 L (18.3-44.2) % Lea % (Auto) 8.9 H (2.6-8.5) % Eos % (Auto) 0.3 (0-4.4) % Baso % (Auto) 0.5 (0.2-1.2) % Lymph # (Auto) 1.17 (0.9-3.2) K/mm3 Lea # (Auto) 0.8 H (0.1-0.6) K/mm3 Eos # (Auto) 0.0 (0-0.3) K/mm3 Baso # (Auto) 0.0 (0.0-0.1) K/mm3 Abs Immat Gran (auto) 0.02 (0.00-0.031) K/mm3 Absolute Neuts (auto) 6.6 (1.3-6.7) K/mm3 Absolute Nucleated RBC 0.000 (0.0-0.012) K/mm3 Nucleated RBC % 0.0 (0.0-0.2) % PT 15.0 H (11.1-14.7) Seconds INR 1.1 APTT 39.3 H (22.3-36.8) Seconds Sodium 135 L (137-145) mmol/L Potassium 4.2 (3.4-5.0) mmol/L Chloride 101 (98-107) mmol/L Carbon Dioxide 21 L (22-30) mmol/L Anion Gap 13 H (4-12) mmol/L BUN 18 H D (7-17) mg/dL Creatinine 0.58 L (0.7-1.0) mg/dL Estim Creat Clear Calc 80 ml/min Estimated GFR > 60 (59 - ) Glucose 117 H (65-110) mg/dL Calcium 9.8 (8.4-10.2) mg/dL Total Bilirubin 0.5 (0.2-1.3) mg/dL AST 30 (14-36) U/L ALT 28 (6-35) U/L Alkaline Phosphatase 92 (38-126) U/L Troponin I < 0.012 < 0.012 (0.000-0.034) ng/mL NT-Pro-B Natriuret Pep 1370 H (19.9-100) pg/mL Total Protein 9.0 H (6.3-8.2) g/dL Albumin 4.7 (3.5-5.1) g/dL Imaging Data Radiologist's impression: Impressions Chest X-Ray 03/16/24 13:08 IMPRESSION: 1: NO ACUTE CARDIOPULMONARY DISEASE. ECG Data EKG #1: Attestation: I personally reviewed and interpreted this ECG as follows: ECG completion date: 03/16/24 Interpretation: ATRIAL FLUTTER AT 134 BEATS PER MINUTE, NONSPECIFIC ST T-WAVE ABNORMALITIES, ABNORMAL EKG EKG #2: Attestation: I personally reviewed and interpreted this ECG as follows: ECG completion date: 03/16/24 Interpretation: NORMAL SINUS RHYTHM AT 64 BEATS PER MINUTE, CARE MYOCARDIAL INFARCTION PROBABLY OLD ABNORMAL EKG, NORMAL SINUS RHYTHM NOW PRESENT COMPARED TO EARLY EKG WHICH SHOWED ATRIAL FLUTTER WITH RVR Critical Care Time Critical Care Time Critical Care Time: Yes (30) Discharge Plan Discharge Clinical Impression: Atrial flutter, paroxysmal Patient Disposition: Home, Self-Care Condition: Improved Instructions: Atrial Flutter (DC) Additional Instructions: RETURN IF SYMPTOMS ARE WORSENING , CALL DR. ELIAS APPOINTMENT, TAKE TYLENOL NEEDED FOR ACHES AND PAIN, CONTINUE HOME MEDICATIONS. REFERRAL TO ELECTROPHYSIOLOGIC STUDY WAS DONE BY DR. ELIAS, FOR POSSIBLE CARDIAC ABLATION. Patient Language: Ugandan Prescriptions: No Action Xarelto 20 mg Tablet 20 mg PO DAILY@1700 Qty: 60 0RF metoprolol tartrate 50 mg Tablet 50 mg PO Q12HR Qty: 60 0RF Follow-up/Referrals: Dimitri Rasheed MD [Primary Care Provider] -
[2024-03-16 12:57] LABS: Basophils Percent Auto 0.5 % (0.2-1.2); Eosinophils Percent Auto 0.3 % (0-4.4); Hematocrit 41.6 % (37.0-47.0); Immature Granulocyte Absolute 0.02 K/mm3 (0.00-0.031); Immature Granulocyte Percent A 0.2 % (0-0.5); Lymphocytes Absolute Auto 1.17 K/mm3 (0.9-3.2); Lymphocytes Percent Auto 13.6 % (18.3-44.2); Mean Corpuscular HGB Conc 33.7 g/dl (32-36); Mean Corpuscular Hemoglobin 32.9 pg (26-34); Mean Corpuscular Volume 97.9 fl (80-100); Mean Platelet Volume 8.7 fl (7.4-10.4); Monocytes Absolute Auto 0.8 K/mm3 (0.1-0.6); Monocytes Percent Auto 8.9 % (2.6-8.5); Neutrophils Absolute Auto 6.6 K/mm3 (1.3-6.7); Neutrophils Percent Auto 76.5 % (45.5-73.1); Platelet Count Result 385 k/mm3 (150-375); Red Blood Count 4.25 M/mm3 (4.2-5.4); Red Cell Distribution Width 12.9 % (11.5-14.5); White Blood Count 8.6 K/mm3 (4.5-10.0)
[2024-03-16 13:07] LABS: Alanine Aminotransferase 28 U/L (6-35); Albumin Level 4.7 g/dL (3.5-5.1); Alkaline Phosphatase 92 U/L (38-126); Anion Gap 13 mmol/L (4-12); Aspartate Amino Transferase 30 U/L (14-36); Bilirubin,Total 0.5 mg/dL (0.2-1.3); Blood Urea Nitrogen 18 mg/dL (7-17); Calcium 9.8 mg/dL (8.4-10.2); Carbon Dioxide 21 mmol/L (22-30); Chloride 101 mmol/L (98-107); Estimated CRCL calculation 80 ml/min; Estimated Glomerular Filt Rate > 60; Glucose 117 mg/dL (65-110); Potassium 4.2 mmol/L (3.4-5.0); Sodium 135 mmol/L (137-145)
--- OUTSIDE RECORDS SUMMARY | 2024-03-16 13:08 | XMS_ITS | Clinical Summary ---
Author Organization [facility] Address [address] [place] [address]. [place], [place] [id number] [place] [address] Care Team Providers Care Ammonia Operator Name Role Phone Sanna Rasheed MD Primary Care Provider +1- [phone] Social History Tobacco Use Types Packs/Day Years [...] 1:38 PM Narrative 10/26/2023 1:39 PM CDT [address] [address] EXAMINATION: MG SCREENING W GALLO APOLLO DIGI [...] Most Recently Relevant to Health Maintenance Insurance [facility] BLUE [facility] MEDICARE Care Teams Ammonia Operator Relationship Specialty Start Date End Date Sanna Rasheed MD [address] [address] PCP - General 08/21/15
[2024-03-16 13:19] LABS: NT Pro B Type Natriuretic Pept 1370 pg/mL (19.9-100); Troponin I < 0.012 ng/mL (0.000-0.034)
[2024-03-16 13:20] LABS: INR 1.1
[2024-03-16 13:21] LABS: Partial Thromboplastin Time 39.3 Seconds (22.3-36.8)
[2024-03-16] MEDS: dilTIAZem 100 MG/100 ML 100 MG/100 ML BAG IV CONT (13:36)
[2024-03-16] MEDS: dilTIAZem HCl INJ 25 MG/5 ML VIAL 10 MG IV PUSH ×2 (13:36→14:00)
--- NOTE | 2024-03-16 15:56 | ECG_ITS ---
Test Date: 2024-03-16 16:09:31 Measurements Intervals [place] Rate: 130 P: 102 NV: 207 QRS: 68 QRSD: 86 T: 69 QT: 376 QTc: 554 Interpretive Statements ATRIAL FLUTTER/TACHYCARDIA WITH RAPID VENTRICULAR RESPONSE NONSPECIFIC ST ABNORMALITY- ANTEROLAT/INF LEADS BASELINE ARTIFACT- I, II, III, AVR, AVL, AVF, V1-V6 ABNORMAL ECG Compared to ECG 03/16/2024 12:26:50 NO SIGNIFICANT CHANGE Electronically Signed On 03-17-2024 10:22:11 GROCERY WORKER by Junior Mauro D.O.
[2024-03-16 16:15] LABS: Troponin I < 0.012 ng/mL (0.000-0.034)
[2024-03-16] MEDS: diazePAM INJ (*CRX) 10 MG/2 ML SYRINGE IV PUSH (17:05)
[2024-03-16] MEDS: SODIUM CHLORIDE 0.9% IV 1,000 ML 999 ML IV CONT ×2 (17:07→18:03)
--- NOTE | 2024-03-16 17:15 | ECG_ITS ---
Test Date: 2024-03-16 17:16:44 Measurements Intervals [place] Rate: 64 P: 45 [place]: 175 QRS: 4 QRSD: 96 T: 30 QT: 433 QTc: 450 Interpretive Statements SINUS RHYTHM POSSIBLE ANTERIOR MYOCARDIAL INFARCTION , AGE INDETERMINATE CONSIDER INFERIOR INFARCT, AGE INDETERMINATE ABNORMAL ECG Compared to ECG 03/16/2024 16:09:31 ATRIAL FLUTTER NO LONGER PRESENT Electronically Signed On 03-17-2024 10:23:00 MANAGER STATISTICAL PROGRAMMING by Junior Mauro D.O.
[2024-03-16 18:53] LABS: Troponin I < 0.012 ng/mL (0.000-0.034)
== END 2024-03-16 19:07 | disposition home or self-care (01) ==
PROVIDERS: Emergency Provider Emergency Medicine; PCP Family Medicine Adolescent Medicine
DX: I48.92 Unspecified atrial flutter (principal); I10 Essential (primary) hypertension; Z87.891 Personal history of nicotine dependence
CPT/HCPCS: 36415; 71045; 80053; 83880; 84484; 85025; 85610; 85730; 93005; 96361; 96374; 96376; 99284; J3360; J7030